=== PATIENT | female | born 1990 | race Caucasian/White ===

== ENCOUNTER 2021-06-19 07:53 | Outpatient (CLI) | payer OTHER, SELFPAY ==
[2021-06-21 16:50] LABS: Testosterone Free 4.3 pg/mL (0.0-4.2)
== END 2021-06-19 23:59 | disposition home or self-care (01) ==
PROVIDERS: Referring Provider Nurse Practitioner Women's Health; Visit Provider Nurse Practitioner Women's Health
DX: N97.0 Female infertility associated with anovulation (principal)
CPT/HCPCS: 36415; 82627; 84402; 82626

== ENCOUNTER 2021-07-08 11:02 | Outpatient (CLI) | payer OTHER, SELFPAY ==
[2021-07-08 11:39] LABS: Progesterone Level 0.54 ng/mL (See Comment)
== END 2021-07-08 23:59 | disposition home or self-care (01) ==
LOC: PAVLAB 11:03
PROVIDERS: Obstetrics & Gynecology; Referring Provider Nurse Practitioner Women's Health; Visit Provider Nurse Practitioner Women's Health
DX: N92.6 Irregular menstruation, unspecified (principal)
CPT/HCPCS: 36415; 84144

== ENCOUNTER → 2021-09-30 | Outpatient (CLI) | payer OTHER, SELFPAY ==
[2021-09-30 08:22] LABS: Progesterone Level 17.48 ng/mL (See Comment)
== END | disposition home or self-care (01) ==
PROVIDERS: Referring Provider Nurse Practitioner Women's Health; Visit Provider Nurse Practitioner Women's Health
DX: N92.6 Irregular menstruation, unspecified (principal)
CPT/HCPCS: 36415; 84144

== ENCOUNTER → 2021-10-28 | Outpatient (CLI) | payer OTHER, SELFPAY ==
[2021-10-28 09:39] LABS: Progesterone Level 7.87 ng/mL (See Comment)
== END | disposition home or self-care (01) ==
LOC: PAVLAB 09:00
PROVIDERS: Obstetrics & Gynecology; Visit Provider Obstetrics & Gynecology
DX: N92.6 Irregular menstruation, unspecified (principal)
CPT/HCPCS: 36415; 84144

== ENCOUNTER → 2022-09-12 | Outpatient (CLI) | payer OTHER, SELFPAY ==
[2022-09-12 09:14] LABS: Absolute Lymphocyte Count 3.01 X10^3/uL (0.83-4.51); Basophil# 0.02 X10^3/uL; Basophil% 0.2 % (0-1); Eosinophil# 0.55 X10^3/uL; Eosinophils% 4.9 % (0-5); Hematocrit 39.7 % (37-47); Hemoglobin 13.2 g/dL (12.0-15.0); Lymphocyte # 3.01 X10^3/ul (0.83-4.51); Lymphocyte % 26.8 % (19-41); Mean Corp Hgb Conc 33.2 g/dL (32-36); Mean Corpuscular Hgb 26.8 pg (27.0-32.0); Mean Corpuscular Volume 80.7 fL (81-99); Mean Platelet Vol. 8.7 fl (6.2-12.0); Monocyte# 0.58 X10^3/uL; Monocyte% 5.2 % (0-10); NRBC Flagged by Analyzer 0 % (0-5); Neutrophil # 7.02 X10^3/uL (2.7-7.7); Neutrophil % 62.5 % (47-70); Platelet Count 345 K/mm3 (150-450); RBC Distribution Width CV 12.3 % (11.6-14.6); RBC Distribution Width SD 35.5 fl (35.1-43.9); Red Blood Count 4.92 M/mm3 (4.2-5.4); White Blood Count 11.2 K/mm3 (4.4-11.0)
[2022-09-12 11:11] LABS: HIV - WCH Non-Reactive (Nonreactive); Hepatitis B Surface Antigen Non-Reactive (Nonreactive); Hepatitis C Antibody Non-Reactive (Nonreactive); Rubella IgG Reactive (Nonreactive); Syphilis Antibodies Non-reactive
[2022-09-16 00:07] LABS: Chlamydia By Nucleic Acid AMP Negative (Negative); Gonococcus By Nucleic Acid AMP Negative (Negative)
[2022-10-13 12:34] LABS: HPV Reflexed? NOT INDICATED
== END | disposition home or self-care (01) ==
PROVIDERS: PCP Nurse Practitioner Family; Referring Provider Obstetrics & Gynecology; Visit Provider Obstetrics & Gynecology
DX: O09.91 Supervision of high risk pregnancy, unspecified, first trimester (principal); Z3A.00 Weeks of gestation of pregnancy not specified
CPT/HCPCS: 36415; 85025; 86703; 86762; 86780; 86803; 86850; 86900; 86901; 87086; 87088; 87340; 87491; 87591; 88175; G0145

== ENCOUNTER → 2022-10-03 | Outpatient (CLI) | payer OTHER, SELFPAY ==
[2022-10-03 09:44] LABS: Glucose Challenge Gest 1H 50g 173 mg/dL (70-140)
== END | disposition home or self-care (01) ==
PROVIDERS: PCP Nurse Practitioner Family; Referring Provider Obstetrics & Gynecology; Visit Provider Obstetrics & Gynecology
DX: O99.210 Obesity complicating pregnancy, unspecified trimester (principal); Z3A.00 Weeks of gestation of pregnancy not specified
CPT/HCPCS: 36415; 82950

== ENCOUNTER → 2022-10-14 | Outpatient (CLI) | payer OTHER, SELFPAY ==
[2022-10-14 07:35] LABS: Glucose GTT-Gestation. Fasting 82 mg/dL (<105)
[2022-10-14 09:08] LABS: Glucose GTT-Gestational 1 Hr 150 mg/dL (<190)
[2022-10-14 09:38] LABS: Glucose GTT-Gestational 2 Hr 160 mg/dL (<165)
[2022-10-14 10:50] LABS: Glucose GTT-Gestational 3 Hr 128 L (<145)
== END | disposition home or self-care (01) ==
LOC: LAB 06:47
PROVIDERS: PCP Nurse Practitioner Family; Referring Provider Obstetrics & Gynecology; Visit Provider Obstetrics & Gynecology
DX: Z13.1 Encounter for screening for diabetes mellitus (principal)
CPT/HCPCS: 36415; 82951; 82952

== ENCOUNTER → 2022-12-22 | Outpatient (CLI) | payer OTHER, SELFPAY ==
[2022-12-22 07:21] LABS: Absolute Neutrophil Count 8.3 X10^3/uL (2.0-7.7); Basophil# 0.02 X10^3/uL; Basophil% 0.2 % (0-1); Eosinophil# 0.09 X10^3/uL; Eosinophils% 0.7 % (0-5); Hematocrit 37.5 % (37-47); Hemoglobin 12.1 g/dL (12.0-15.0); Lymphocyte % 26.5 % (19-41); Mean Corp Hgb Conc 32.3 g/dL (32-36); Mean Corpuscular Hgb 27.6 pg (27.0-32.0); Mean Corpuscular Volume 85.4 fL (81-99); Mean Platelet Vol. 9.1 fl (6.2-12.0); Monocyte# 0.68 X10^3/uL; Monocyte% 5.5 % (0-10); NRBC Flagged by Analyzer 0 % (0-5); Neutrophil # 8.26 X10^3/uL (2.7-7.7); Neutrophil % 66.4 % (47-70); Platelet Count 293 K/mm3 (150-450); RBC Distribution Width CV 13.2 % (11.6-14.6); RBC Distribution Width SD 40.8 fl (35.1-43.9); Red Blood Count 4.39 M/mm3 (4.2-5.4); White Blood Count 12.4 K/mm3 (4.4-11.0)
[2022-12-22 07:49] LABS: Glucose GTT-Gestation. Fasting 95 mg/dL (<105)
[2022-12-22 09:02] LABS: Glucose GTT-Gestational 1 Hr 167 mg/dL (<190)
[2022-12-22 09:33] LABS: Glucose GTT-Gestational 2 Hr 125 mg/dL (<165)
[2022-12-22 10:10] LABS: HIV - WCH Non-Reactive (Nonreactive); Syphilis Antibodies Non-reactive
[2022-12-22 10:34] LABS: Glucose GTT-Gestational 3 Hr 96 L (<145)
== END | disposition home or self-care (01) ==
LOC: LAB 06:47
PROVIDERS: PCP Nurse Practitioner Family; Referring Provider Obstetrics & Gynecology; Visit Provider Obstetrics & Gynecology
DX: O09.91 Supervision of high risk pregnancy, unspecified, first trimester (principal); Z3A.00 Weeks of gestation of pregnancy not specified
CPT/HCPCS: 36415; 82951; 82952; 85025; 86703; 86780

== ENCOUNTER → 2023-01-13 | Outpatient (CLI) | payer OTHER, SELFPAY ==
--- NOTE | 2023-01-13 15:50 | US_ITS ---
EXAM: US SECOND OR THIRD TRIMESTER , TRANSABDOMINAL CLINICAL INDICATION: growth -- every 4 weeks TECHNIQUE: Transabdominal obstetrical ultrasound of the maternal pelvis and a second or third trimester with image documentation. COMPARISON: No relevant prior studies available. FINDINGS: FETUS: There is an intrauterine gestation. HEART RATE: heart rate is 157 bpm. PRESENTATION: The fetus is in breech position. PLACENTA: The placenta is left lateral. No placenta previa. No abruption. AMNIOTIC FLUID: KINJAL is 16.9 cm. ANATOMY: Intracranial/face anatomy not seen. Spinal anatomy not seen. Abdominal anatomy not seen. Extremities not seen. Four-chamber heart not seen. Umbilical cord not seen. BIOMETRICS GESTATIONAL AGE: Gestational age 27 weeks 4 days. SONY: SONY 04/10/2023. EFW: Estimated weight 1294 g, 84th percentile. BPD: Biparietal diameter 7.2 cm age 29 weeks 0 days, 84th percentile. HC: Head circumference 26.4 cm age 20 weeks 5 days, 57th percentile. AC: Abdominal circumference 25.1 cm age 29 weeks 2 days, 88th percentile. FL: Femur length 5.2 cm age 27 weeks 6 days, 43rd percentile. MATERNAL: UTERUS: Unremarkable. No myometrial mass. CERVIX: Cervix measures 5 cm. ADNEXA: Unremarkable. No adnexal masses. FREE FLUID: None. US/OB Limited With Biometrics IMPRESSION: Intrauterine gestation with an average ultrasound age of 28 weeks 4 days and ultrasound estimated due date of 04/03/2023. heart rate is 157 beats per minutes. Electronically Signed: Josué Casiano MD at 20:49 EDT ,
== END | disposition home or self-care (01) ==
PROVIDERS: PCP Nurse Practitioner Family; Visit Provider Obstetrics & Gynecology
DX: O99.210 Obesity complicating pregnancy, unspecified trimester (principal); Z3A.00 Weeks of gestation of pregnancy not specified
CPT/HCPCS: 76816

== ENCOUNTER → 2023-02-10 | Outpatient (CLI) | payer OTHER, SELFPAY ==
--- NOTE | 2023-02-10 12:19 | US_ITS ---
STUDY: SECOND AND THIRD TRIMESTER OBSTETRICAL ULTRASOUND REASON FOR EXAM: Female, 32 years old Infertility IVF TECHNIQUE: Transabdominal PRIOR ULTRASOUND: 01/13/2023. FINDINGS: There is a single intrauterine fetus. The fetus is in a cephalic presentation. There is demonstrated cardiac activity with a heart rate of 141 bpm. There is a normal amniotic fluid volume. The largest amniotic fluid pocket measures 6.6 cm. The amniotic fluid index (KINJAL) is 15.9 cm. The placenta is left lateral and not low-lying. There are Grade 1 placental changes. The cervix measures 3.7 cm in length. The adnexal regions are not visualized. BPD: 8.2 cm = 32 weeks, 5 day(s) HC: 29.3 cm = 32 weeks, 2 day(s) AC: 24 cm = 33 weeks, 3 day(s) FL: 5.8 cm = 30 weeks, 4 day(s) EGA by ultrasound: 32 weeks 1 day(s) SONY by ultrasound: 04/06/2023 Estimated weight: 1998 grams Weight percentile: 70% US/OB Limited With Biometrics IMPRESSION: Living intrauterine with estimated gestational age of 32 weeks and 1 day. No obvious anomalies. Electronically Signed: Odilon Chen MD at 16:44 EST ,
== END | disposition home or self-care (01) ==
LOC: US 12:18
PROVIDERS: PCP Nurse Practitioner Family; Referring Provider Obstetrics & Gynecology; Visit Provider Obstetrics & Gynecology
DX: O09.91 Supervision of high risk pregnancy, unspecified, first trimester (principal); Z3A.00 Weeks of gestation of pregnancy not specified
CPT/HCPCS: 76816

== ENCOUNTER → 2023-03-11 | Outpatient (CLI) | payer OTHER, SELFPAY ==
--- NOTE | 2023-03-11 16:52 | US_ITS ---
STUDY: SECOND AND THIRD TRIMESTER OBSTETRICAL ULTRASOUND - LIMITED REASON FOR EXAM: Female, 32 years old Growth every 4 weeks, IVF LMP: 07/04/2022 PRIOR ULTRASOUND: 02/10/2023 TECHNIQUE: Transabdominal TECHNICAL QUALITY: Adequate. FINDINGS: There is a single intrauterine fetus. The fetus is in a cephalic presentation. There is demonstrated cardiac activity with a heart rate of 153 bpm. There is a normal amniotic fluid volume. The largest amniotic fluid pocket measures 6.9 cm. The amniotic fluid index (KINJAL) is 15.1 cm. The placenta is left lateral in location and is not low lying. There are Grade 1 placental changes. The cervix measures 3.6 cm in length. BIOMETRY: BPD: 8.9 cm: 36 weeks, 0 days HC: 32.3 cm: 36 weeks, 4 days AC: 33.0 cm: 37 weeks, 0 days FL: 6.6 cm: 34 weeks, 0 days Age by LMP: 35 weeks, 5 days. SONY by LMP: 04/10/2023. age by prior US: weeks, days. SONY by prior US: . age by current US: 36 weeks, 3 days. SONY by current US: 04/05/2023. Estimated weight: 2863 grams, +/- 429 grams, 62 percentile. Gender: US/OB Limited With Biometrics IMPRESSION: Living intrauterine of 36 weeks 3 days as described above. Electronically Signed: Narayan Leary MD at 22:53 EST ,
== END | disposition home or self-care (01) ==
PROVIDERS: PCP Nurse Practitioner Family; Referring Provider Obstetrics & Gynecology; Visit Provider Obstetrics & Gynecology
DX: O99.810 Abnormal glucose complicating pregnancy (principal); O09.91 Supervision of high risk pregnancy, unspecified, first trimester; Z3A.00 Weeks of gestation of pregnancy not specified
CPT/HCPCS: 76816

== ENCOUNTER → 2023-03-18 | Outpatient (CLI) | payer OTHER, SELFPAY | END | disposition home or self-care (01) | LOC: LABSPEC 13:25 | PROVIDERS: PCP Nurse Practitioner Family; Visit Provider Registered Nurse | DX: Z34.90 Encounter for supervision of normal pregnancy, unspecified, unspecified trimester (principal) | CPT/HCPCS: 87081 ==

== ENCOUNTER 2023-04-05 18:56 | Inpatient (IN) | payer OTHER, SELFPAY ==
--- OUTSIDE RECORDS SUMMARY | 2023-04-05 19:00 | XMS RPT_ITS | CCD ---
Author Name Unknown Address [address] [place] [address] Organization [facility] Care Team Providers Care Marketing Information Coordinator Name Role Phone MARIA FERNANDA SANTIZO Attending UnavailAugustina Love Unavailable Unavailable Unavailable NEVAEH BAKER Attending Unavailable Unavailable Primary Care Provider Alex STAPLETON PRIMARY CAREMD Primary Care Unavailable HARRY NASCIMENTO Attending Unavailable HARRY NASCIMENTO Referring Unavailable NO PRIMARY CARE, Primary Care Unavailable NURIA MCGINNIS Referring UnavailKAYLEEN Womack Attending Unavailable Medications Current Medications Medication Drug Class(es) Dates Sig (Normalized) Sig (Original) polymyxin b 75952 unt/ml / trimethoprim 1 mg/ml ophthalmic solution (1 source) Dihydrofolate Reductase Inhibitor Antibacterial, Polymyxin-class Antibacterial Start: 08-24-2022 End: 08-31-2022 take 1 drop(s) into the eye(s) three times daily trimethoprim-sofia ymyxin (POLYTRIM) 10,000 unit- 1 mg/mL ophthalmic solution Use 1 Drop in both eyes three times daily for 7 days. 10 mL 0 08/24/2022 08/31/2022 Active Completed/Discontinued Medications Medication Drug Class(es) Dates Sig (Normalized) Sig (Original) estradiol 2 mg oral tablet (1 source) Estrogen Start: 08-03-2022 estradiol (ESTRACE) 2 mg tablet 24 hr metFORMIN hydrochloride 500 mg extended release oral tablet (1 source) Biguanide Start: 06-17-2022 metFORMIN ER (GLUCOPHAGE XR) 500 mg 24 hr tablet No Reported Medications (2 sources) No Reported Medications Quantity: 0 Refills: 0 Ordered: 22-Oct-2020 DO Active progesterone 50 mg/ml injectable solution (1 source) Progesterone Start: 08-03-2022 progesterone 50 mg/mL injection Problems Problem Classification Problem Date Documented Da te Episodic/Chronic Inflammation; infection of eye (except that caused by tuberculosis or sexually transmitteddisease) (1 source) Acute conjunctivitis of bilateral eyes; Translations: [Unspecified acute conjunctivitis, bilateral] Episodic Other nutritional; endocrine; and metabolic disorders (2 sources) Body mass index 30+ - obesity; Translations: [Body Mass Index 38.0-38.9, adult] Chronic Thyroid disorders (2 sources) Goiter; Translations: [Goiter, unspecified] Chronic Unclassified (1 source) No additional problems on file Results Test Name Value Interpretation Reference Range Facil ity Vital Signs Date Time Vital Sign Value Performing Clinician Facility 08-24-2022 08:20-0400 Body temperature 98.1 [degF] Kelley Lai [employer] Work Phone: [facility] 08-24-2022 08:20-0400 Body weight 96.16 kg Kelley Savagek [employer]PROJECT BU[employer]DER Work Phone: [facility] 08-24-2022 08:20-0400 Diastolic blood pressure 80 mm[Hg] Kelley Lai [employer].[facility] Work Phone: [facility] 08-24-2022 08:20-0400 Heart rate 120 /min Kelley Lai [employer].[facility] Work Phone: [facility] 08-24-2022 08:20-0400 Respiratory rate 16 /min Kelley Lai [employer].[facility] Work Phone: [facility] 08-24-2022 08:20-0400 SaO2% (BldA) [Mass fraction] 98 % Kelley Savagek [employer].PROJECT BUILDER Work Phone: [facility] 08-24-2022 08:20-0400 Systolic blood pressure 130 mm[Hg] Kelley Lai [employer].[facility] Work Phone: [facility] 10-22-2020 15:24-0400 Body height 160.02 cm Augustina Cochran Work Phone: [facility] Work Phone: 10-22-2020 15:24-0400 Body mass index (BMI) [Ratio] 38.97 kg/m2 Augustina Cochran Work Phone: [facility] Work Phone: 10-22-2020 15:24-0400 Body surface area Derived from formula 2.01 m2 Augustina Cochran Work Phone: [facility] Work Phone: 10-22-2020 15:24-0400 Body temperature 97.7 [degF] Augustina Cochran Work Phone: [facility] Work Phone: 10-22-2020 15:24-0400 Body weight 99.79 kg Augustina Cochran Work Phone: [facility] Work Phone: 10-22-2020 15:24-0400 Diastolic blood pressure 70 mm[Hg] Augustina Cochran Work Phone: [facility] Work Phone: 10-22-2020 15:24-0400 Heart rate 111 /min Augustina Cochran Work Phone: [facility] Work Phone: 10-22-2020 15:24-0400 SaO2% (BldA) [Mass fraction] 98 % Augustina Cochran Work Phone: [facility] Work Phone: 10-22-2020 15:24-0400 Systolic blood pressure 124 mm[Hg] Augustina Cochran Work Phone: [facility] Work Phone: Encounters Encounter Date Encounter Type Care Provider Facility Start: 12-16-2022 End: 12-16-2022 ambulatory NO PRIMARY CARE [facility] Start: 11-13-2022 End: 11-13-2022 ambulatory NO PRIMARY CARE [facility] Start: 08-24-2022 End: 08-24-2022 ambulatory Facility:[facility] Start: 08-24-2022 End: 08-24-2022 Patient encounter procedure Kelley Hoyt APRN.SHANA Work Phone: [facility] Care Procedures Date Procedure Procedure Detail Performing Clinician Tonsillectomy and adenoidectomy Augustina Cochran Work Phone: Plan of Treatment Date Care Activity Detail Author Start: 11-21-2022 Influenza vaccination INFLUENZA (Sea son Ended) [facility] Start: 03-23-2022 DEPRESSION ASSESSMENT DEPRESSION ASS ESSMENT [facility] Start: 09-30-2021 Urine microalbumin profile DTA P,TDAP,TD (8 - Td or Tdap) [facility] Start: 2013 PAP TESTING PAP TESTING [facility] Start: 2010 HEPATITIS C SCREENING HEPATITIS C SC LONNY [facility] Start: 2010 HIV SCREENING HIV SCREENING [facility] Start: 06-10-1993 COVID-19 VACCINE (#1) COVID-19 VACCI NE (#1) [facility] Immunizations Immunization Date Immunization Notes Care Provider Fa berna 10-01-2011 Meningococcal, MCV4, unspecified conjugate formulation(groups A, C, Y and W-135) Kelley Hoyt APRN.PROJECT BUILDER Work Phone: [facility] 10-01-2011 tetanus toxoid, redu melissa diphtheria toxoid, and acellular pertussis vaccine, adsorbed Kelley Hoyt APRN.PROJECT BUILDER Work Phone: [facility] 06-01-2008 human papilloma viru s vaccine, quadrivalent Kelley Hoyt APRN.PROJECT BUILDER Work Phone: [facility] Work Phone: 06-01-2008 varicella virus vaccine Angel Hoyt APRN.PROJECT BUILDER Work Phone: [facility] Work Phone: 02-01-2008 human papilloma viru s vaccine, quadrivalent Kelley Hoyt APRN.PROJECT BUILDER Work Phone: [facility] Work Phone: 11-30-2007 hepatitis A vaccine, unspecified formulation Kelley Lai [employer].PROJECT BUILDER Work Phone: [facility] Work Phone: 11-30-2007 human papilloma viru s vaccine, quadrivalent Kelleyjaney Hoyt [employer]PER[employer].PROJECT BUILDER Work Phone: [facility] Work Phone: 11-27-2006 hepatitis A vaccine, unspecified formulation Kelley Hoyt [employer]PER[employer].PROJECT BUILDER Work Phone: [facility] Work Phone: 01-26-2006 influenza virus vaccine, unspecified formulation Kelley Hoyt [employer]PER[employer].[facility] Work Phone: [facility] Work Phone: 11-08-2004 diphtheria and tetan us toxoids, adsorbed for pediatric use Kelleyjaney Hoyt [employer]PER[employer].[facility] Work Phone: [facility] Work Phone: 11-08-2004 Meningococcal, MCV4, unspecified conjugate formulation(groups A, C, Y and W-135) Kelley Hoyt APRN.PROJECT BUILDER Work Phone: [facility] Work Phone: 10-30-2000 varicella virus vaccine Angel Hoyt APRN.[facility] Work Phone: [facility] Work Phone: 01-05-1998 diphtheria, tetanus toxoids and acellular pertussis vaccine Kelley Hyot APRN.PROJECT BUILDER Work Phone: [facility] Work Phone: 01-05-1998 measles, mumps and rubella virus vaccine Kelley Hoyt [employer]PER[employer].PROJECT BUILDER Work Phone: [facility] Work Phone: 01-05-1998 trivalent poliovirus vaccine, live, oral Kelley Hoyt APRN.PROJECT BUILDER Work Phone: [facility] Work Phone: 03-26-1994 diphtheria, tetanus toxoids and acellular pertussis vaccine Kelley Hoyt APRN.PROJECT BUILDER Work Phone: [facility] Work Phone: 03-26-1994 haemophilus influenz ae type b vaccine, HbOC conjugate Kelley Lai [employer] SUPER[employer].[facility] Work Phone: [facility] Work Phone: 12-26-1993 measles, mumps and rubella virus vaccine Kelley Lai [employer] SUPER[employer].[facility] Work Phone: [facility] Work Phone: 07-11-1993 diphtheria, tetanus toxoids and pertussis vaccine Kelley Lai [employer] SUPER[employer].[facility] Work Phone: [facility] Work Phone: 07-11-1993 haemophilus influenz ae type b vaccine, HbOC conjugate Kelley Lai [employer] SUPER[employer].[facility] Work Phone: [facility] Work Phone: 07-11-1993 hepatitis B vaccine, pediatric or pediatric/adolescent dosage Kelley Lai [employer] SUPER[employer].[facility] Work Phone: [facility] Work Phone: 07-11-1993 trivalent poliovirus vaccine, live, oral Kelley Lai [employer] SUPER[employer].[facility] Work Phone: [facility] Work Phone: 04-25-1993 diphtheria, tetanus toxoids and pertussis vaccine Kelley Lai [employer] SUPER[employer].[facility] Work Phone: [facility] Work Phone: 04-25-1993 haemophilus influenz ae type b vaccine, HbOC conjugate Kelley Lai [employer] SUPER[employer].PROJECT BUILDER Work Phone: [facility] Work Phone: 04-25-1993 trivalent poliovirus vaccine, live, oral Kelley Lai [employer] SUPER[employer].[facility] Work Phone: [facility] Work Phone: 02-07-1993 diphtheria, tetanus toxoids and pertussis vaccine Kelley Lai [employer] SUPER[employer].[facility] Work Phone: [facility] Work Phone: 02-07-1993 haemophilus influenz ae type b vaccine, HbOC conjugate Kelley Hoyt APRN.PROJECT BUILDER Work Phone: [facility] Work Phone: 02-07-1993 hepatitis B vaccine, pediatric or pediatric/adolescent dosage Kelley Hoyt [employer] SUPER[employer].PROJECT BUILDER Work Phone: [facility] Work Phone: 02-07-1993 trivalent poliovirus vaccine, live, oral Kelley Hoyt [employer] SUPER[employer].PROJECT BUILDER Work Phone: [facility] Work Phone: 1992 hepatitis B vaccine, pediatric or pediatric/adolescent dosage Kelley Hoyt [employer] SUPER[employer].PROJECT BUILDER Work Phone: [facility] Work Phone: Payers Date Payer Category Payer Unknown 2016 Unknown [id number] 1992 Unknown [id number] 1992 Unknown [id number] 1992 Unknown [id number] 1992 Unknown [id number] Social History Date Type Detail Facility Consumes alcohol occasionally Consumes alcohol occasionally [facility] Work Phone: Start: 08-24-2022 Tobacco smoking status NHIS Never smoked tobacco [facility] Start: 08-24-2022 Tobacco use and exposure Smokeless tobacco non-user [facility] Start: 08-24-2022 Alcohol intake Current non-drinker of alcohol (finding) [facility] Start: 07-18-2022 [facility] Start: 1990 Sex Assigned At Not on file [facility] Progress note 08-24-2022 Note Date & Type Note Facility 08-24-2022 Note HNO ID: [id number] Author: Kelley Hoyt APRN.CNP Service: ? Author Type: Nurse Practitioner Type: Progress Notes Filed: 08/24/2022 8:46 AM Note Text: Subjective Eye Problem Associated symptoms include congestion and a sore throat. Pertinent negatives include no chest pain, chills, coughing, fever, headaches or myalgias. HPI Nieves Lin is a 31 year old female who presents today for CC of bilateral red eyes and yellow drainage. This started in past days. She also started 2 days ago, nasal congestion and drainage. She has not used any treatment or medications. She is 7 weeks . BP 130/80 Pulse 120 Temp 36.7 ?C (98.1 ?F) Resp 16 Wt 96.2 kg (212 lb) LMP 06/29/2018 SpO2 98% Social History Tobacco Use Smoking status: Never Smokeless tobacco: Never Substance Use Topics Alcohol use: No Drug use: No PAST MEDICAL HISTORY Diagnosis Date PMH - PAST MEDICAL HISTORY OF normal color vision on I have confirmed and edited as necessary, the [facility] Review of Systems Constitutional: Negative for chills and fever. HENT: Positive for congestion and sore throat. Negative for ear pain and sinus pain. Eyes: Positive for discharge and redness. Respiratory: Negative for cough, sputum production, shortness of breath and wheezing. Cardiovascular: Negative for chest pain. Musculoskeletal: Negative for myalgias. Neurological: Negative for headaches. Objective Physical Exam Vitals and nursing note reviewed. HENT: Head: Normocephalic and atraumatic. Right Ear: Tympanic membrane, ear canal and external ear normal. Left Ear: Tympanic membrane, ear canal and external ear normal. Nose: No mucosal edema, congestion or rhinorrhea. Right Sinus: No maxillary sinus tenderness or frontal sinus tenderness. Left Sinus: No maxillary sinus tenderness or frontal sinus tenderness. Mouth/Throat: Pharynx: Uvula midline. No oropharyngeal exudate or posterior oropharyngeal erythema. Eyes: General: Lids are normal. Lids are everted, no foreign bodies appreciated. Right eye: No foreign body or discharge. Left eye: No foreign body or discharge. Conjunctiva/sclera: Right eye: Right conjunctiva is injected. Left eye: Left conjunctiva is injected. Comments: Clear drainage Cardiovascular: Rate and Rhythm: Normal rate and regular rhythm. Heart sounds: Normal heart sounds. Pulmonary: Effort: Pulmonary effort is normal. Breath sounds: Normal breath sounds. Lymphadenopathy: Head: Right side of head: No submental, submandibular or tonsillar adenopathy. Left side of head: No submental, submandibular or tonsillar adenopathy. Cervical: No cervical adenopathy. Skin: General: Skin is warm and dry. Neurological: Mental Status: She is alert. Psychiatric: Mood and Affect: Affect normal. ASSESSMENT/PLAN: 1. Acute conjunctivitis of both eyes, unspecified acute conjunctivitis type - ICD9: 372.00, ICD10: H10.33 Suspect viral, allergic - soothing eye drops - start polytrim with worsening symptoms Follow up with pcp as needed Mucinex as needed for uri symptoms Diagnosis and treatment plan were discussed and questions were answered to the patient's satisfaction. Pt acknowledged understanding of concepts and follow up plan. Specific signs and symptoms that would indicate the need for higher level of care were discussed in detail warranting prompt ER evaluation. Kelley Hoyt APRN.CNP [facility] Instructions 08-24-2022 Patient Instructions Note Date & Type Note Facility 08-24-2022 Instructions Kelley Hoyt APRN.CNP - 08/24/2022 8:35 AM EDT Wash eye/eyes with diluted baby shampoo morning to help remove crusting Cool compresses for eye inflammation/irritation frequently throughout the day. Go to ER for any sudden loss of vision or severe vision changes. Follow up with PCP if no improvement in 1 week. documented in this encounter [facility] History of Present illness Narrative 08-24-2022 Kelley Hoyt APRN.CNP - 08/24/2022 8:34 AM EDT Note Date & Type Note Facility 08-24-2022 History of Presen t illness Narrative Subjective Eye Problem Associated symptoms include congestion and a sore throat. Pertinent negatives include no chest pain, chills, coughing, fever, headaches or myalgias. HPI Nieves Lin is a 31 year old female who presents today for CC of bilateral red eyes and yellow drainage. This started in past days. She also started 2 days ago, nasal congestion and drainage. She has not used any treatment or medications. She is 7 weeks . BP 130/80 Pulse 120 Temp 36.7 C (98.1 F) Resp 16 Wt 96.2 kg (212 lb) LMP 06/29/2018 SpO2 98% Social History Tobacco Use Smoking status: Never Smokeless tobacco: Never Substance Use Topics Alcohol use: No Drug use: No PAST MEDICAL HISTORY Diagnosis Date H - PAST MEDICAL HISTORY OF normal color vision on I have confirmed and edited as necessary, the [facility] Review of Systems Constitutional: Negative for chills and fever. HENT: Positive for congestion and sore throat. Negative for ear pain and sinus pain. Eyes: Positive for discharge and redness. Respiratory: Negative for cough, sputum production, shortness of breath and wheezing. Cardiovascular: Negative for chest pain. Musculoskeletal: Negative for myalgias. Neurological: Negative for headaches. Objective Physical Exam Vitals and nursing note reviewed. HENT: Head: Normocephalic and atraumatic. Right Ear: Tympanic membrane, ear canal and external ear normal. Left Ear: Tympanic membrane, ear canal and external ear normal. Nose: No mucosal edema, congestion or rhinorrhea. Right Sinus: No maxillary sinus tenderness or frontal sinus tenderness. Left Sinus: No maxillary sinus tenderness or frontal sinus tenderness. Mouth/Throat: Pharynx: Uvula midline. No oropharyngeal exudate or posterior oropharyngeal erythema. Eyes: General: Lids are normal. Lids are everted, no foreign bodies appreciated. Right eye: No foreign body or discharge. Left eye: No foreign body or discharge. Conjunctiva/sclera: Right eye: Right conjunctiva is injected. Left eye: Left conjunctiva is injected. Comments: Clear drainage Cardiovascular: Rate and Rhythm: Normal rate and regular rhythm. Heart sounds: Normal heart sounds. Pulmonary: Effort: Pulmonary effort is normal. Breath sounds: Normal breath sounds. Lymphadenopathy: Head: Right side of head: No submental, submandibular or tonsillar adenopathy. Left side of head: No submental, submandibular or tonsillar adenopathy. Cervical: No cervical adenopathy. Skin: General: Skin is warm and dry. Neurological: Mental Status: She is alert. Psychiatric: Mood and Affect: Affect normal. ASSESSMENT/PLAN: 1. Acute conjunctivitis of both eyes, unspecified acute conjunctivitis type - ICD9: 372.00, ICD10: H10.33 Suspect viral, allergic - soothing eye drops - start polytrim with worsening symptoms Follow up with pcp as needed Mucinex as needed for uri symptoms Diagnosis and treatment plan were discussed and questions were answered to the patient's satisfaction. Pt acknowledged understanding of concepts and follow up plan. Specific signs and symptoms that would indicate the need for higher level of care were discussed in detail warranting prompt ER evaluation. Kelley Hoyt APRN.CNP documented in this encounter [facility] Evaluation note Note Date & Type Note Facility documented in this encounter [facility] Summary Purpose Family History No Family History Records FoundUnknown Family Member Name Dates Details No pertinent family history: Mother(V49.89, Z78.9) Status:Active Family history of malignant neoplasm of thyroid: Father(V16.8, Z80.8) Status:Active Unknown Family Member Name Dates Details No pertinent family history: Mother(V49.89, Z78.9) Status:Active Family history of malignant neoplasm of thyroid: Father(V16.8, Z80.8) Status:Active Advance Directives No Advanced Directives Records FoundNo Advanced Directives Records FoundNo Advanced Directives Records FoundNo Advanced Directives Records FoundNo Advanced Directives Records FoundNo Advanced Directives Records FoundNo Advanced Directives Records Found Additional Source Comments INFORMATION SOURCE (unrecogn ized section and content) DATE CREATED AUTHOR AUTHOR'S ORGANIZ ATION 11/25/2019 [facility] DATE CREATED AUTHOR AUTHOR'S ORGANIZ ATION 10/23/2020 [employer] DATE CREATED AUTHOR AUTHOR'S ORGANIZ ATION 10/28/2020 [facility] DATE CREATED AUTHOR AUTHOR'S ORGANIZ ATION 11/15/2021 [facility] DATE CREATED AUTHOR AUTHOR'S ORGANIZ ATION 08/31/2022 [facility] DATE CREATED AUTHOR AUTHOR'S ORGANIZ ATION 12/24/2022 [facility] Source Comments (unrecognize d section and content) In the event this informatio n is protected by the Federal Confidentiality of Alcohol and Drug Abuse Patient Records regulations: The Federal rules restrict any use of the information to criminally investigate or prosecute any alcohol or drug abuse patient.[facility] Reason for Visit (unrecogniz ed section and content) FOR RECORDS PERTAINING TO PATIENTS WHO ARE OR HAVE BEEN ENROLLED IN A CHEMICAL DEPENDENCY/SUBSTANCEABUSE PROGRAM, SOME INFORMATION MAY BE OMITTED. This clinical summary was aggregated from multiple sources. Caution should be exercised in using it in the provision of clinical care. This summary normalizes information from multiple sources, and as a consequence, information in this document may materially change the coding, format and clinical context of patient data. In addition, data may be omitted in some cases. CLINICAL DECISIONS SHOULD BE BASED ON THE PRIMARY CLINICAL RECORDS. [facility]. provides no warranty or guarantee of the accuracy or completeness of information in this document.
[2023-04-05 19:20] VITALS: BP 133/93; PULSE 112; TEMP 37.1; O2SAT 97
[2023-04-05 19:21] VITALS: PULSE 109; O2SAT 98
[2023-04-05 19:26] VITALS: BMI 40.5
[2023-04-05 19:39] LABS: Absolute Lymphocyte Count 3.01 X10^3/uL (0.83-4.51); Basophil# 0.01 X10^3/uL; Basophil% 0.1 % (0-1); Eosinophil# 0.07 X10^3/uL; Eosinophils% 0.6 % (0-5); Hematocrit 37.6 % (37-47); Hemoglobin 12.6 g/dL (12.0-15.0); Lymphocyte # 3.01 X10^3/ul (0.83-4.51); Lymphocyte % 25.3 % (19-41); Mean Corp Hgb Conc 33.5 g/dL (32-36); Mean Corpuscular Hgb 27.6 pg (27.0-32.0); Mean Corpuscular Volume 82.3 fL (81-99); Mean Platelet Vol. 9.9 fl (6.2-12.0); Monocyte# 0.74 X10^3/uL; Monocyte% 6.2 % (0-10); NRBC Flagged by Analyzer 0 % (0-5); Neutrophil # 8.02 X10^3/uL (2.7-7.7); Neutrophil % 67.4 % (47-70); Platelet Count 256 K/mm3 (150-450); RBC Distribution Width CV 13.7 % (11.6-14.6); RBC Distribution Width SD 40.3 fl (35.1-43.9); Red Blood Count 4.57 M/mm3 (4.2-5.4); White Blood Count 11.9 K/mm3 (4.4-11.0)
[2023-04-05 19:40] VITALS: BP 139/89; PULSE 94
[2023-04-05] MEDS: miSOPROStol 25 MCG TABLET VAGINAL (20:19)
[2023-04-05 20:26] LABS: Syphilis Antibodies Non-reactive
[2023-04-05 20:33] LABS: AST(SGOT) 11 U/L (15-37); Alanine Aminotransfer ALT/SGPT 15 U/L (13-56); Creatinine, Serum 0.56 mg/dL (0.55-1.02); EST Glomerular Filtration Rate 133 mL/min (>60); Est Glom Filt Rate - Afr Amer 162 mL/min (>60); Uric Acid 3.9 mg/dL (2.6-6.0)
[2023-04-05] MEDS: CHLORHEXIDINE GLUC 2% CLOTH 1 EACH TOWELETTE TOPICAL (21:33)
[2023-04-05 21:52] LABS: Protein, Urine (Random) 36.5 mg/dL (<11.9); Protein:Creat Ratio 160 mg/g CRE (0-200)
[2023-04-06] VITALS (10 sets, daily range): BP systolic 114–138; BP diastolic 62–83; PULSE 79–114; TEMP 36.3–37.3; O2SAT 96–98
[2023-04-06] MEDS: miSOPROStol 25 MCG TABLET VAGINAL ×2 (00:21→04:52)
[2023-04-06] MEDS: Lactated Ringers 1,000 ML 50 ML IV (08:38)
[2023-04-06] MEDS: miSOPROStol 50 MCG TABLET BUCCAL ×2 (10:19→16:52)
[2023-04-06] MEDS: CHLORHEXIDINE GLUC 2% CLOTH 1 EACH TOWELETTE TOPICAL (11:19)
--- NOTE | 2023-04-06 12:51 | HP.PCM.OB_ITS ---
HPI - General General Date of Admission: 04/05/23 HPI Narrative JUAN LOUISE, is a 32 F who presents for IOL at 39 weeks due in IVF . complicated by obesity, monthly growth scans obtained. EFW: Maternal Data Information SONY Calculator Estimated Delivery Date Method Current WG Current Estimate 04/10/23 Conception 39w 3d Other Estimates 04/10/23 LMP (Certain) 39w 3d PFSH PFSH Medical History Genetic testing Home Medications docosahexaenoic acid 200 mg capsule ( DHA) 200 mg PO 09/12/22 [History Last Taken 04/05/23 07:24 200 mg] metformin 1,000 mg tablet 1,000 mg PO DAILY insulin dependence pre- 09/12/22 [History Last Taken 04/05/23 07:25 1,000 mg] Allergy/AdvReac Type Severity Reaction Status Date / Time No Known Allergies Allergy Verified 04/05/23 19:24 Family History Father Thyroid cancer Grandmother Rectal cancer Grandfather Heart disease Surgical History History of tonsillectomy S/P foot surgery, right Social History household members: spouse current occupational status: employed current occupation: [employer] Smoking Status: Never smoker alcohol intake: current alcohol intake frequency: a few times a month substance use type: does not use caffeine: Yes what type of physical activity do you participate in: walking frequency: 3-4 times per week seatbelt use: always do you feel safe at home: Yes additional social history: - Hardik History 1 Elective abortions Hx Para 0 Spontaneous abortions Hx # Term Pregnancies Ectopic pregnancies Hx # Pregnancies Multiple births # of living children Visit Details Expected Delivery Route/Plan Labor Preferences- CB/BF classes: declines labor support person: Hardik labor intervention preferences: [] pain management options preferred: limited but open to epidural if needed cut cord/dad catch: cord : yes PP control planned: discussed discussed possible routes of delivery and associated risks: [] special requests: [] Plans Covid status: discussed Flu vaccine: given Tdap vaccine: [] Rhogam: na LARC form signed: yes Problem list reviewed and updated with the most current plan of care details and appropriate orders placed. Relevant counseling for the gestational age provided. Continue routine care and follow up unless otherwise noted in visit notes/problem list details OB Flowsheet Initial Weight: Not Recorded Date -?-?-?-?-?-?-?-?-?-?-?-?- EGA Weight BP Urine Prot -?-?-?-?-?-?-?-?-?-?-?-?- Glucose FHR FuHt Pres Dilation -?-?-?-?-?-?-?-?-?-?-?-?- Effaced St Visit Note 09/12/22 -?-?-?-?-?-?-?-?-?-?-?-?- 10w 0d 210 lb 135/71 -?-?-?-?-?-?-?-?-?-?-?-?- 190 -?-?-?-?-?-?-?-?-?-?-?-?- JV- CRL measurin g 10 weeks 5 days. embryo transfer on 07/23/22 at 5 days gestation, was given sony of 04/10 by [facility]. had carrier screen, does not want NIPT. 10/06/22 -?-?-?-?-?-?-?-?-?-?-?-?- 13w 3d 214 lb 136/82 Negative -?-?-?-?-?-?-?-?-?-?-?-?- Negative 160 -?-?-?-?-?-?-?-?-?-?-?-?- LC- no vb/crampi ng. to obtain 3 hour GCT. on metformin for insulin resistance but not DM2. 11/06/22 -?-?-?-?-?-?-?-?-?-?-?-?- 17w 6d 215 lb 2 oz 136/84 Nega tive -?-?-?-?-?-?-?-?-?-?-?-?- Negative 148 -?-?-?-?-?-?-?-?-?-?-?-?- KW-no vb/ crampi ng. declines AFP. Anatomy US next week. no concerns today 12/02/22 -?-?-?-?-?-?-?-?-?-?-?-?- 21w 4d 220 lb 2 oz 121/77 Nega tive -?-?-?-?-?-?-?-?-?-?-?-?- Negative 145 -?-?-?-?-?-?-?-?-?-?-?-?- SM- no vb lof go od fm n oreular ctx 12/16/22 -?-?-?-?-?-?-?-?-?-?-?-?- 23w 4d 220 lb 2 oz 92/60 -?-?-?-?-?-?-?-?-?-?-?-?- 145 -?-?-?-?-?-?-?-?-?-?-?-?- SM- no vb lof go od fm n oregular ctx 01/12/23 -?-?-?-?-?-?-?-?-?-?-?-?- 27w 3d 224 lb 2 oz 120/84 Nega tive -?-?-?-?-?-?-?-?-?-?-?-?- Negative 138 28 -?-?-?-?-?-?-?-?-?-?-?-?- MH-No VB, LOF. G ood FM. Flu vaccine. Larc. 01/27/23 -?-?-?-?-?-?-?-?-?--?-?-?- 29w 4d 226 lb 2 oz 137/87 Nega tive -?-?-?-?-?-?-?-?-?-?-?-?- Negative 154 30 -?-?-?-?-?-?-?-?-?-?-?-?- JV- tdap today. no cramping or spotting. no complaints. JV- tdap today. no cramping or spotting. no complaints. follow up growth ultrasound needed. (q 4 weeks) 02/09/23 -?-?-?-?-?-?-?-?-?-?-?-?- 31w 3d 227 lb 6 oz 115/77 Nega tive -?-?-?-?-?-?-?-?-?-?-?-?- Negative 150 33 -?-?-?-?-?-?-?-?-?-?-?-?- JV- no lof, vagi nal bleeding, or dec fm. growth scan tomorrow 02/27/23 -?-?-?-?-?-?-?-?-?-?-?-?- 34w 0d 230 lb 114/81 Negative -?-?-?-?-?-?-?-?-?-?-?-?- Negative 135 35 -?-?-?-?-?-?-?-?-?-?--?-?- KW- no vb/lof/ct x. good fm. NST for IVF today- reactive 03/05/23 -?-?-?-?-?-?-?-?-?-?-?-?- 34w 6d 230 lb 6 oz 126/84 Nega tive -?-?-?-?-?-?-?-?-?-?--?-?- Negative 150 -?-?-?-?-?-?-?-?-?-?-?-?- MH-NST only reac tive 03/11/23 -?-?-?-?-?-?-?-?-?-?-?-?- 35w 5d 229 lb 8 oz 127/87 Nega tive -?-?-?-?-?-?-?-?-?-?-?-?- Negative 145 -?-?-?-?-?-?-?-?-?-?-?-?- JV- no complaint s today. GBS now due to holiday coming up. plan for 39 week IO L. JV- no complaints today. GBS now due to holiday coming up. plan for 39 week IOL. NST reactive with one carrot like baseline change. baby sounds wildly reactive. 03/18/23 -?-?-?-?-?-?--?-?-?-?-?-?- 36w 5d 231 lb 125/85 Negative -?-?-?-?-?-?-?-?-?-?-?-?- Negative 150 37 -?-?-?-?-?-?-?-?-?-?-?-?- LC-GBS recollect ed. declines VE. consented for IOL. to schedule next week for 39 weeks after exam for am/pm on 04/03. LC-GBS recollected. declines VE. consented for IOL. to schedule next week for 39 weeks after exam for am/pm on 04/03. reactive nst. 03/26/23 -?-?-?-?-?-?-?-?-?-?-?-?- 37w 6d 229 lb 137/93 -?-?-?-?-?-?-?-?-?-?-?-?- 155 38 0 -?-?-?-?-?-?-?-?-?-?-?-?- KW- no vb/lof/ct x. good fm. reactive NST today. IOL for 04/0503/31/23 -?-?-?-?-?-?-?-?-?-?-?-?- 38w 4d 233 lb 129/89 Negative -?-?-?-?-?-?-?-?-?-?-?-?- Negative 140 39 -?-?-?-?-?-?-?-?-?-?-?-?- SM- no vb lof go od fm no regular ctx, scheduled for IOL NST FHR Rate Baby A Baseline: 150 Variability:: Moderate Accelerations:: 15 x 15 Decelerations:: None NST Reactive:: Yes FHR Category:: Category I Vital Signs Vital Signs Vital Signs: 04/05/23 19:20 04/05/23 19:20 04/05/23 19:21 Temperature Temperature Source Pulse Rate 112 H 109 H Blood Pressure 133/93 H BP Systolic 133 BP Diastolic 93 Pulse Ox 04/05/23 19:21 04/05/23 19:20 04/05/23 19:20 Temperature Temperature Source Temporal Pulse Rate Blood Pressure BP Systolic BP Diastolic Pulse Ox 98 97 04/05/23 19:20 04/05/23 19:40 04/05/23 19:40 Temperature 98.7 F Temperature Source Pulse Rate 94 Blood Pressure 139/89 H BP Systolic 139 BP Diastolic 89 Pulse Ox 04/06/23 00:15 04/06/23 00:15 04/06/23 00:15 Temperature Temperature Source Pulse Rate 98 Blood Pressure 137/71 H BP Systolic 137 BP Diastolic 71 Pulse Ox 96 04/06/23 00:15 04/06/23 04:31 04/06/23 04:31 Temperature 98.9 F Temperature Source Pulse Rate 114 H Blood Pressure 127/82 H BP Systolic 127 BP Diastolic 82 Pulse Ox 04/06/23 04:31 04/06/23 04:31 04/06/23 04:31 Temperature 98.6 F Temperature Source Temporal Pulse Rate Blood Pressure BP Systolic BP Diastolic Pulse Ox 97 04/06/23 04:31 04/06/23 07:33 04/06/23 07:33 Temperature Temperature Source Pulse Rate 102 H 96 Blood Pressure 124/83 H BP Systolic 124 BP Diastolic 83 Pulse Ox 04/06/23 07:33 04/06/23 07:29 04/06/23 07:29 Temperature 97.4 F L Temperature Source Temporal Pulse Rate Blood Pressure BP Systolic BP Diastolic Pulse Ox 97 04/06/23 10:03 04/06/23 10:03 04/06/23 10:03 Temperature Temperature Source Temporal Pulse Rate 87 Blood Pressure 133/80 H BP Systolic 133 BP Diastolic 80 Pulse Ox 04/06/23 10:03 04/06/23 11:32 04/06/23 11:32 Temperature 98.5 F Temperature Source Pulse Rate 110 H Blood Pressure BP Systolic BP Diastolic Pulse Ox 97 Weight Weight: 228 lb 9.91 oz Body Mass Index (BMI) 40.5 Labs Labs Labs: Blood Type A POSITIVE Antibody Screen NEGATIVE Hct 37.6 % (37-47) Hgb 12.6 g/dL (12.0-15.0) Pap Smear Negative Obstetrics Ultrasound Syphilis Total Ab Non-reactive Rubella IgG Antibody Reactive (Nonreactive) Hep Bs Antigen Non-Reactive (Nonreactive) Hepatitis C Antibody Non-Reactive (Nonreactive) Chlamydia DNA (RUBÉN) Negative (Negative) N.gonorrhoeae DNA (RUBÉN) Negative (Negative) HIV 1&2 Antibody Non-Reactive (Nonreactive) Glucose 1 Hr 50 gm 173 mg/dL (70-140) H Gest Glucose Tolerance MG/DL Miscellaneous Test
--- NOTE | 2023-04-06 12:51 | PCM.HP.OB ---
HPI - General General Date of Admission: 04/05/23 HPI Narrative JUAN LOUISE, is a 32 F who presents for IOL at 39+3 weeks due in IVF . complicated by obesity, monthly growth scans obtained. EFW: 2863g on 03/11, 62%. normal 3 hr GTT Maternal Data Information SONY Calculator Estimated Delivery Date Method Current WG Current Estimate 04/10/23 Conception 39w 3d Other Estimates 04/10/23 LMP (Certain) 39w 3d Final SONY: 04/10/23 Gestational age: 39+3 PFSH PFSH Medical History (Updated 04/06/23 @ 12:56 by Annetta Zurita CNM) Genetic testing Home Medications docosahexaenoic acid 200 mg capsule ( DHA) 200 mg PO 09/12/22 [History Last Taken 04/05/23 07:24 200 mg] metformin 1,000 mg tablet 1,000 mg PO DAILY insulin dependence pre- 09/12/22 [History Last Taken 04/05/23 07:25 1,000 mg] Allergy/AdvReac Type Severity Reaction Status Date / Time No Known Allergies Allergy Verified 04/05/23 19:24 Family History Father Thyroid cancer Grandmother Rectal cancer Grandfather Heart disease Surgical History History of tonsillectomy S/P foot surgery, right Social History household members: spouse current occupational status: employed current occupation: [employer] Smoking Status: Never smoker alcohol intake: current alcohol intake frequency: a few times a month substance use type: does not use caffeine: Yes what type of physical activity do you participate in: walking frequency: 3-4 times per week seatbelt use: always do you feel safe at home: Yes additional social history: - Hardik History 1 Elective abortions Hx Para 0 Spontaneous abortions Hx # Term Pregnancies Ectopic pregnancies Hx # Pregnancies Multiple births # of living children Visit Details Expected Delivery Route/Plan Labor Preferences- CB/BF classes: declines labor support person: Hardik labor intervention preferences: [] pain management options preferred: limited but open to epidural if needed cut cord/dad catch: cord : yes PP control planned: discussed discussed possible routes of delivery and associated risks: [] special requests: [] Plans Covid status: discussed Flu vaccine: given Tdap vaccine: [] Rhogam: na LARC form signed: yes Problem list reviewed and updated with the most current plan of care details and appropriate orders placed. Relevant counseling for the gestational age provided. Continue routine care and follow up unless otherwise noted in visit notes/problem list details OB Flowsheet Initial Weight: Not Recorded Date <del>?</del> EGA Weight BP Urine Prot <del>?</del> Glucose FHR FuHt Pres Dilation <del>?</del> Effaced St Visit Note 09/12/22 <del>?</del> 10w 0d 210 lb 135/71 <del>?</del> 190 <del>?</del> JV- CRL measuring 10 weeks 5 days. embryo transfer on 07/23/22 at 5 days gestation, was given sony of 04/10 by [facility]. had carrier screen, does not want NIPT. 10/06/22 <del>?</del> 13w 3d 214 lb 136/82 Negative <del>?</del> Negative 160 <del>?</del> LC- no vb/cramping. to obtain 3 hour GCT. on metformin for insulin resistance but not DM2. 11/06/22 <del>?</del> 17w 6d 215 lb 2 oz 136/84 Negative <del>?</del> Negative 148 <del>?</del> KW-no vb/ cramping. declines AFP. Anatomy US next week. no concerns today 09/12/23 <del>?</del> 21w 4d 220 lb 2 oz 121/77 Negative <del>?</del> Negative 145 <del>?</del> SM- no vb lof good fm n oreular ctx 12/16/22 <del>?</del> 23w 4d 220 lb 2 oz 92/60 <del>?</del> 145 23 <del>?</del> SM- no vb lof good fm n oregular ctx 01/12/23 <del>?</del> 27w 3d 224 lb 2 oz 120/84 Negative <del>?</del> Negative 138 28 <del>?</del> MH-No VB, LOF. Good FM. Flu vaccine. Larc. 01/27/23 <del>?</del> 29w 4d 226 lb 2 oz 137/87 Negative <del>?</del> Negative 154 30 <del>?</del> JV- tdap today. no cramping or spotting. no complaints. JV- tdap today. no cramping or spotting. no complaints. follow up growth ultrasound needed. (q 4 weeks) 02/09/23 <del>?</del> 31w 3d 227 lb 6 oz 115/77 Negative <del>?</del> Negative 150 33 <del>?</del> JV- no lof, vaginal bleeding, or dec fm. growth scan tomorrow 02/27/23 <del>?</del> 34w 0d 230 lb 114/81 Negative <del>?</del> Negative 135 35 <del>?</del> KW- no vb/lof/ctx. good fm. NST for IVF today- reactive 03/05/23 <del>?</del> 34w 6d 230 lb 6 oz 126/84 Negative <del>?</del> Negative 150 <del>?</del> MH-NST only reactive 03/11/23 <del>?</del> 35w 5d 229 lb 8 oz 127/87 Negative <del>?</del> Negative 145 <del>?</del> JV- no complaints today. GBS now due to holiday coming up. plan for 39 week IOL. JV- no complaints today. GBS now due to holiday coming up. plan for 39 week IOL. NST reactive with one carrot like baseline change. baby sounds wildly reactive. 03/18/23 <del>?</del> 36w 5d 231 lb 125/85 Negative <del>?</del> Negative 150 37 <del>?</del> LC-GBS recollected. declines VE. consented for IOL. to schedule next week for 39 weeks after exam for am/pm on 04/03. LC-GBS recollected. declines VE. consented for IOL. to schedule next week for 39 weeks after exam for am/pm on 04/03. reactive nst. 03/26/23 <del>?</del> 37w 6d 229 lb 137/93 <del>?</del> 155 38 0 <del>?</del> KW- no vb/lof/ctx. good fm. reactive NST today. IOL for 04/0503/31/23 <del>?</del> 38w 4d 233 lb 129/89 Negative <del>?</del> Negative 140 39 <del>?</del> SM- no vb lof good fm no regular ctx, scheduled for IOL NST FHR Rate Baby A Baseline: 150 Variability:: Moderate Accelerations:: 15 x 15 Decelerations:: None NST Reactive:: Yes FHR Category:: Category I ROS Cardiovascular Cardiovascular: Denies abdominal pain, chest pain, diaphoresis or dyspnea Respiratory/Chest Respiratory/Chest: Denies change in mental status, chest congestion, chest tightness, cough, shortness of breath at rest, shortness of breath with exertion, breast mass, breast pain, breast skin changes, breast swelling, change in breast shape or nipple discharge Genitourinary Genitourinary: Reports change in urinary stream Musculoskeletal Musculoskeletal: Reports none Integumentary Integumentary: Reports none Neurologic Neurologic: Reports none Psychiatric Psychiatric: Reports none Endocrine Endocrinology: Reports none Hematologic/Lymphatic Hematologic/Lymphatic: Reports none Allergic/Immunologic Allergic/Immunologic: Reports none Vital Signs Vital Signs Vital Signs: 04/05/23 19:20 04/05/23 19:20 04/05/23 19:21 Temperature Temperature Source Pulse Rate 112 H 109 H Blood Pressure 133/93 H BP Systolic 133 BP Diastolic 93 Pulse Ox 04/05/23 19:21 04/05/23 19:20 04/05/23 19:20 Temperature Temperature Source Temporal Pulse Rate Blood Pressure BP Systolic BP Diastolic Pulse Ox 98 97 04/05/23 19:20 04/05/23 19:40 04/05/23 19:40 Temperature 98.7 F Temperature Source Pulse Rate 94 Blood Pressure 139/89 H BP Systolic 139 BP Diastolic 89 Pulse Ox 04/06/23 00:15 04/06/23 00:15 04/06/23 00:15 Temperature Temperature Source Pulse Rate 98 Blood Pressure 137/71 H BP Systolic 137 BP Diastolic 71 Pulse Ox 96 04/06/23 00:15 04/06/23 04:31 04/06/23 04:31 Temperature 98.9 F Temperature Source Pulse Rate 114 H Blood Pressure 127/82 H BP Systolic 127 BP Diastolic 82 Pulse Ox 04/06/23 04:31 04/06/23 04:31 04/06/23 04:31 Temperature 98.6 F Temperature Source Temporal Pulse Rate Blood Pressure BP Systolic BP Diastolic Pulse Ox 97 04/06/23 04:31 04/06/23 07:33 04/06/23 07:33 Temperature Temperature Source Pulse Rate 102 H 96 Blood Pressure 124/83 H BP Systolic 124 BP Diastolic 83 Pulse Ox 04/06/23 07:33 04/06/23 07:29 04/06/23 07:29 Temperature 97.4 F L Temperature Source Temporal Pulse Rate Blood Pressure BP Systolic BP Diastolic Pulse Ox 97 04/06/23 10:03 04/06/23 10:03 04/06/23 10:03 Temperature Temperature Source Temporal Pulse Rate 87 Blood Pressure 133/80 H BP Systolic 133 BP Diastolic 80 Pulse Ox 04/06/23 10:03 04/06/23 11:32 04/06/23 11:32 Temperature 98.5 F Temperature Source Pulse Rate 110 H Blood Pressure BP Systolic BP Diastolic Pulse Ox 97 Weight Weight: 228 lb 9.91 oz Body Mass Index (BMI) 40.5 Physical Exam Const alert, oriented x3 and no apparent distress General Appearance: cooperative, comfortable and well kempt Orientation / Consciousness: awake and oriented to person Exam Limitations: no limitations HEENT normocephalic Neck full ROM Chest inspection of chest normal Resp normal respiratory effort, normal air movement and no retractions Effort and Inspection: able to speak in complete sentences and symmetric chest movement Cardio regular rate Peripheral Pulses: pulses 2+ throughout GI normal to inspection, nondistended, normoactive bowel sounds Inspection: gravid no CVA tenderness and appearance of the vagina normal External Female Exam: normal appearance of the urethra; Negative for external lesion OB / External & Speculum: external exam normal Manual OB Exam: estimated gestational size appropriate, presentation cephalic and dilated 0 Uterus Palpation: Negative for uterus tender Extremity normal to inspection Skin no rashes or lesions noted Neuro deep tendon reflexes 2+ bilaterally and gait normal Motor Exam: strength 5/5 throughout and clonus absent Psych Activity / Motor Behavior: appropriate eye contact Speech: normal speech Labs Labs Labs: Blood Type A POSITIVE Antibody Screen NEGATIVE Hct 37.6 % (37-47) Hgb 12.6 g/dL (12.0-15.0) Pap Smear Negative Obstetrics Ultrasound Syphilis Total Ab Non-reactive Rubella IgG Antibody Reactive (Nonreactive) Hep Bs Antigen Non-Reactive (Nonreactive) Hepatitis C Antibody Non-Reactive (Nonreactive) Chlamydia DNA (RUBÉN) Negative (Negative) N.gonorrhoeae DNA (RUBÉN) Negative (Negative) HIV 1&2 Antibody Non-Reactive (Nonreactive) Glucose 1 Hr 50 gm 173 mg/dL (70-140) H Gest Glucose Tolerance MG/DL Miscellaneous Test Assessment & Plan (1) Encounter for induction of labor: COMMENT: cytotec induction, then plan pitocin/matos once more favorabl/dilated. PLAN: updated on exam, poc and agrees with above. 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 (4) Supervision of high risk in first trimester: COMMENT: PRR, SONY 04/10/23 surprise : Hardik (5) : QUALIFIERS: Weeks of gestation: 38 weeks Qualified Code(s): Z3A.38 - 38 weeks gestation of COMMENT: carrier reviewed, declined genetic screening. declined AFP screening. nl anatomy. gbs neg
[2023-04-06] MEDS: 0.9% Normal Saline Single 100 ML IV.SOLN. INTRA-UTER (20:15)
[2023-04-06] MEDS: Ondansetron 4 MG/2 ML Vial IV (21:46)
[2023-04-06] MEDS: 0.9% Saline Lock 10 ML Syringe IV (21:46)
[2023-04-07] VITALS (133 sets, daily range): BP systolic 81–189; BP diastolic 37–123; PULSE 44–173; RESP 16; TEMP 36.7–37.9; O2SAT 81–100
[2023-04-07] MEDS: Oxytocin 15 Units/NS 250ml 15 UNITS/250 ML IV.SOLN 2 UNITS IV (00:06)
[2023-04-07] MEDS: fentaNYL 100 MCG/2 ML Ampul IV ×2 (00:18→04:16)
[2023-04-07] MEDS: CHLORHEXIDINE GLUC 2% CLOTH 1 EACH TOWELETTE TOPICAL ×2 (02:34→14:29)
--- NOTE | 2023-04-07 07:50 | PCM.PN.BLA ---
Progress Note Coping well with contractions. Desires epidural when pain becomes worse. current tracing: FHT: 140 Moderate variability reactive no decelerations category I tracing [place]: 3-5 minute Contractions Membranes:Ruptured at 0735 for clear fluid SVE:3/80/-1 A/P: Continue with position changes Titrate pitocin per protocol Epidural per anesthesia when desired Anticipate Dr West aware of above assessment and agrees with plan of care Assessment & Plan Assessment/Plan (1) Encounter for induction of labor: (2) Abnormal glucose affecting : (3) Obesity affecting : QUALIFIERS: Trimester: second trimester Obesity type affecting : unspecified obesity Qualified Code(s): O99.212 - Obesity complicating , second trimester (4) Infertility: (5) : QUALIFIERS: Weeks of gestation: 38 weeks Qualified Code(s): Z3A.38 - 38 weeks gestation of (6) Supervision of high risk in first trimester: (7) Genetic testing: Capacity Legal Wastewater Process Engineer Reflex Medical hold order details:: IF a medical hold is selected below, a suggested order for a MEDICAL HOLD will reflex upon signing the document. Next of kin: [place] law dictates a PRIORITY LIST for identifying legal decision-maker/legal next of kin in the following order (LNOK): 1st: The patient?s legal guardian, if any 2nd: The patient's spouse (if status is questionable, consult Risk Management) 3rd: The patient?s adult child(lala) (majority, if multiple children) 4th: The patient?s parents 5th: The patient?s adult siblings (majority, if multiple children siblings) Multi Select Codes Urinary/Genital Urinary/Genital CPT Codes: No Charge
[2023-04-07] MEDS: LACTATED RINGERS 500 ML 999 ML IV ×2 (08:45→15:08)
[2023-04-07] MEDS: Lactated Ringers 1,000 ML 200 ML IV ×2 (09:16→14:28)
[2023-04-07] MEDS: fentaNYL-bupivacaine (epidural) 100 ML BAG EPIDURAL ×2 (09:45→14:27)
--- NOTE | 2023-04-07 11:45 | PN_ITS ---
Progress Note comfortable with epidural current tracing: FHT: 140 Moderate variability reactive no decelerations category I tracing [place]: 3 minute Contractions- IUPC placed by nursing Membranes:ruptured this am remains clear SVE:3/85/-1 per nursing at 1100 A/P: Continue with position changes Titrate pitocin per protocol Epidural per anesthesia Anticipate Dr West aware of above assessment and agrees with plan of care Assessment & Plan Assessment/Plan (1) Encounter for induction of labor: (2) Abnormal glucose affecting : (3) Obesity affecting : QUALIFIERS: Trimester: second trimester Obesity type affecting : unspecified obesity Qualified Code(s): O99.212 - Obesity complicating , second trimester (4) Infertility: (5) : QUALIFIERS: Weeks of gestation: 38 weeks Qualified Code(s): Z3A.38 - 38 weeks gestation of (6) Supervision of high risk in first trimester: (7) Genetic testing: Capacity Legal Valve Repairer Reflex Medical hold order details:: IF a medical hold is selected below, a suggested order for a MEDICAL HOLD will reflex upon signing the document. Next of kin: [place] law dictates a PRIORITY LIST for identifying legal decision-maker/legal next of kin in the following order (LNOK): 1st: The patient?s legal guardian, if any 2nd: The patient's spouse (if status is questionable, consult Risk Management) 3rd: The patient?s adult child(lala) (majority, if multiple children) 4th: The patient?s parents 5th: The patient?s adult siblings (majority, if multiple children siblings) Multi Select Codes Urinary/Genital Urinary/Genital CPT Codes: No Charge
--- NOTE | 2023-04-07 16:39 | PN_ITS ---
Progress Note comfortable with epidural current tracing: FHT: 140 Moderate variability reactive occasional late decelerations category II tracing [place]: 2-3 minute Contractions Membranes:ruptured this am remains clear SVE:8.5 reviewed tracing abnormalities since last note: collaboration with Dr Avila at this time for Cat II FHT tracing. resolves with position changes and interventions. She reviewed tracing from office and agrees with plan to continue current POC A/P: Continue with position changes Titrate pitocin per protocol Epidural per anesthesia Anticipate Dr West aware of above assessment and agrees with plan of care Assessment & Plan Assessment/Plan (1) Encounter for induction of labor: (2) Abnormal glucose affecting : (3) Obesity affecting : QUALIFIERS: Trimester: second trimester Obesity type affecting : unspecified obesity Qualified Code(s): O99.212 - Obesity complicating , second trimester (4) Infertility: (5) : QUALIFIERS: Weeks of gestation: 38 weeks Qualified Code(s): Z3A.38 - 38 weeks gestation of (6) Supervision of high risk in first trimester: (7) Genetic testing: Capacity Legal Director Of Assessment Reflex Medical hold order details:: IF a medical hold is selected below, a suggested order for a MEDICAL HOLD will reflex upon signing the document. Next of kin: [place] law dictates a PRIORITY LIST for identifying legal decision-maker/legal next of kin in the following order (LNOK): 1st: The patient?s legal guardian, if any 2nd: The patient's spouse (if status is questionable, consult Risk Management) 3rd: The patient?s adult child(lala) (majority, if multiple children) 4th: The patient?s parents 5th: The patient?s adult siblings (majority, if multiple children siblings) Multi Select Codes Urinary/Genital Urinary/Genital CPT Codes: No Charge
[2023-04-07] MEDS: Oxytocin 15 Units/NS 250ml 15 UNITS/250 ML IV.SOLN 83 UNITS IV ×2 (18:13→19:10)
[2023-04-07] MEDS: Oxytocin 10 UNITS/ML Vial IM (18:20)
[2023-04-07] MEDS: Methylergonovine 0.2 MG/ML Ampul 0.200000000000000011 MG IM (18:21)
[2023-04-07] MEDS: miSOPROStol 200 MCG Tablet 1000 MCG RC (18:24)
[2023-04-07] MEDS: TRANEXAMIC ACID 1,000 MG in 0.9% Normal Saline (100mL Bag) 100 ML 440 MG IV (19:01)
[2023-04-07] MEDS: Cefazolin 2 GM in 0.9% Normal Saline (100mL Bag) 100 ML IV (19:05)
--- NOTE | 2023-04-07 19:08 | OP.PCM_ITS ---
Assessment & Plan (1) Vaginal delivery: COMMENT: KW/JV IOL IVF boy Deon (2) Encounter for induction of labor: COMMENT: cytotec induction, then plan pitocin/matos once more favorabl/dilated. (3) Abnormal glucose affecting : COMMENT: Normal 3hr GTT (4) Obesity affecting : QUALIFIERS: Trimester: second trimester Obesity type affecting : unspecified obesity Qualified Code(s): O99.212 - Obesity complicating , second trimester COMMENT: early glucola growth scans q4 weeks 62% at 36 weeks for BMI >40 start nsts at 34 weeks weekly (5) Infertility: COMMENT: embryo transferred at 5 days on 07/23/2022 echo at 24 week- WNL deliver at 39 weeks (6) : QUALIFIERS: Weeks of gestation: 38 weeks Qualified Code(s): Z3A.38 - 38 weeks gestation of COMMENT: carrier reviewed, declined genetic screening. declined AFP screening. nl anatomy. 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 (9) hemorrhage: COMMENT: 1500cc EBL Maternal Data Information SONY Calculator Estimated Delivery Date Method Current WG Current Estimate 04/10/23 Conception 39w 4d Other Estimates 04/10/23 LMP (Certain) 39w 4d Final SONY: 04/10/23 Final SONY Source: [place] >20 weeks Gestational age: 39.4 Vaginal Delivery Maternal Presentation Maternal Presentation: Medically Indicated Induction Maternal Presentation: Progressed well to 10cm dilated and made steady progress with effective maternal pushing. Delivered the head in ROSITA presentation. The head was delivered atraumatically and no nuchal cord was identified. The anterior and posterior shoulders delivered without complication followed by the rest of the infant and the was placed on the maternal abdomen. Delayed cord clamping was employed for approximately 5 minutes. Cord was clamped and cut and gentle traction was applied to the cord and the placenta delivered spontaneously. Immediately following, it was noted to be intact with a 3 vessel cord. Started having large amount of uterine bleeding and vaginal sweep performed with small membrane extracted from uterus. Methergine and Pitocin IM, Pitocin IV, rectal Cytotec 1000mg given. Dr Sellers called for evaluation. See her note for details. The perineum and vagina were inspected and noted to have a second degree laceration which was repaired with 3-0 Vicryl in the usual fashion by Dr Sellers. EBL was 1500cc. Patient and infant tolerated delivery well. Apgars 8/9. Dr Sellers notified of vaginal delivery and orders reviewed and placed by Dr Avila. Physician agrees with current plan of care. Type of Induction: Pitocin, Matos Bulb and Cytotec Medical Reason for Induction: - (IVF) Operative Information Date of Procedure: 04/07/23 Pre-Operative Diagnosis: See AP comments Post-Operative Diagnosis: Same Surgery / Procedure Performed: Spontaneous Vaginal Delivery vertical contour band saw operator #1: Ana Noble Type of Anesthesia: Epidural Estimated Blood Loss: 1500 Time of Delivery: 18:04 Findings Presentation: ROSITA Amniotic Membrane Rupture Type: Artificial Amniotic Fluid Description: Clear Placental Delivery Description: Spontaneous and Manual Removal (sweep of membranes) Placenta Disposition: [facility] Cord Vessel Description: 3 Vessels Cord Entanglement: None Infant A Gender: Male (1 minute): 8 (5 minute): 9 Delayed Cord Clamping: Yes Post Vaginal Delivery Medications Given After Delivery: IV Pitocin, IM Pitocin and IM Methergin Episiotomy Description: None Laceration: 2nd degree Complication Complications: None Multi Select Codes Urinary/Genital Urinary/Genital CPT Codes: 49578 Vaginal Delivery [facility]
[2023-04-07 19:09] LABS: Absolute Lymphocyte Count 3.35 X10^3/uL (0.83-4.51); Absolute Neutrophil Count 15.3 X10^3/uL (2.0-7.7); Basophil# 0.03 X10^3/uL; Basophil% 0.1 % (0-1); Eosinophil# 0.04 X10^3/uL; Eosinophils% 0.2 % (0-5); Lymphocyte # 3.35 X10^3/ul (0.83-4.51); Lymphocyte % 16.6 % (19-41); Mean Corp Hgb Conc 32.4 g/dL (32-36); Mean Corpuscular Hgb 27.5 pg (27.0-32.0); Mean Corpuscular Volume 84.7 fL (81-99); Mean Platelet Vol. 10.4 fl (6.2-12.0); Monocyte# 1.32 X10^3/uL; Monocyte% 6.5 % (0-10); NRBC Flagged by Analyzer 0 % (0-5); Neutrophil # 15.29 X10^3/uL (2.7-7.7); Neutrophil % 75.9 % (47-70); Platelet Count 320 K/mm3 (150-450); RBC Distribution Width CV 13.4 % (11.6-14.6); RBC Distribution Width SD 41.2 fl (35.1-43.9); Red Blood Count 4.37 M/mm3 (4.2-5.4); White Blood Count 20.2 K/mm3 (4.4-11.0)
[2023-04-07] MEDS: 0.9% Normal Saline (1000mL) 1,000 ML 15 ML IV (19:25)
[2023-04-07 19:26] LABS: Partial Thromboplast Time 26.9 Seconds (24.1-36.2)
[2023-04-07] MEDS: 0.9% Saline Lock 10 ML Syringe IV (19:27)
[2023-04-07 19:42] LABS: Fibrinogen 661 mg/dl (203-444)
--- NOTE | 2023-04-07 20:03 | NURSING ---
Placenta delivered at 181. Placenta fragment retained and manually removed by dr smith
[2023-04-07] MEDS: Ondansetron 4 MG/2 ML Vial IV (20:11)
[2023-04-08] VITALS (14 sets, daily range): BP systolic 111–126; BP diastolic 61–81; PULSE 107–150; RESP 16–20; TEMP 36.8–38.2; O2SAT 97–99
[2023-04-08 00:20] LABS: Hematocrit 33.7 % (37-47); Hemoglobin 11.4 g/dL (12.0-15.0); Mean Corp Hgb Conc 33.8 g/dL (32-36); Mean Corpuscular Hgb 27.9 pg (27.0-32.0); Mean Corpuscular Volume 82.4 fL (81-99); Mean Platelet Vol. 10.2 fl (6.2-12.0); Platelet Count 227 K/mm3 (150-450); RBC Distribution Width CV 13.5 % (11.6-14.6); RBC Distribution Width SD 39.9 fl (35.1-43.9); Red Blood Count 4.09 M/mm3 (4.2-5.4)
[2023-04-08] MEDS: Acetaminophen 500 MG Tablet 1000 MG PO (01:29)
[2023-04-08 05:57] LABS: Hematocrit 30.2 % (37-47); Hemoglobin 10.2 g/dL (12.0-15.0); Mean Corp Hgb Conc 33.8 g/dL (32-36); Mean Corpuscular Hgb 27.6 pg (27.0-32.0); Mean Corpuscular Volume 81.8 fL (81-99); Mean Platelet Vol. 10.4 fl (6.2-12.0); POSITIVE DIFFERENTIAL YES; Platelet Count 205 K/mm3 (150-450); RBC Distribution Width CV 13.7 % (11.6-14.6); RBC Distribution Width SD 40.5 fl (35.1-43.9); Red Blood Count 3.69 M/mm3 (4.2-5.4); White Blood Count 25.2 K/mm3 (4.4-11.0)
[2023-04-08 06:49] LABS: Differential Comment S
[2023-04-08 06:52] LABS: Differential Indicated SCAN CRITERIA MET
--- NOTE | 2023-04-08 07:40 | PN.OBGYN_ITS ---
Subjective Subjective Patient doing well without complaints. Tolerating PO. Ambulating and voiding without difficulty. Feeding well. Denies chest pain, shortness of breath, palpitations,calf pain/swelling, fevers, chills, lightheadedness. States feels much improvement since receiving blood transfusion. Objective Data Objective Data Vital Signs: Vital Signs Temp Pulse Resp BP Pulse Ox O2 Del Method 99.4 F H 116 H 18 126/67 H 99 Room Air 04/08/23 00:08 04/08/23 04:40 04/08/23 04:40 04/08/23 04:40 04/07/23 23:09 04/08/23 04:40 Oxygen Delivery Method Room Air Weight: 228 lb 9.91 oz Body Mass Index (BMI) 40.5 Intake & Output: Intake and Output for Last 24 Hours 04/06/23 04/07/23 04/08/23 23:59 23:59 23:59 Intake Total 585 / 585 5029.87 / 5029.87 Output Total 700 / 700 3400 / 3400 100 / 100 Balance -115 / -115 1629.87 / 1629.87 -100 / -100 Lab / Micro Data 04/08/23 05:40 04/05/23 19:20 Labs: Laboratory Results - last 24 hr 04/05/23 19:20: Crossmatch See Detail 04/07/23 18:55: WBC 20.2 H, RBC 4.37, Hgb 12.0, Hct 37.0, MCV 84.7, MCH 27.5, MCHC 32.4, RDW Std Deviation 41.2, RDW Coeff of Manda 13.4, Plt Count 320, MPV 10.4, Immature Gran % (Auto) 0.700, Neut % (Auto) 75.9 H, Lymph % (Auto) 16.6 L, [place] % (Auto) 6.5, Eos % (Auto) 0.2, Baso % (Auto) 0.1, Absolute Neuts (auto) 15.3 H, Absolute Lymphs (auto) 3.35, Nucleated RBC % 0, PT 13.0, INR 1.0, APTT 26.9, Fibrinogen 661 H 04/08/23 00:15: WBC 28.0 H, RBC 4.09 L, Hgb 11.4 L, Hct 33.7 L, MCV 82.4, MCH 27.9, MCHC 33.8, RDW Std Deviation 39.9, RDW Coeff of Manda 13.5, Plt Count 227, MPV 10.2 04/08/23 05:40: WBC 25.2 H, RBC 3.69 L, Hgb 10.2 L, Hct 30.2 L, MCV 81.8, MCH 27.6, MCHC 33.8, RDW Std Deviation 40.5, RDW Coeff of Manda 13.7, Plt Count 205, MPV 10.4, Neut % (Auto) Not Reportable, Differential Comment S, Diff Path Review May foll Physical Exam Const alert and oriented x3 HEENT normocephalic Eyes PERRL Neck full ROM Resp normal respiratory effort GI soft to palpation GI Narrative: FF below U Assessment & Plan (1) Vaginal delivery: COMMENT: KW/JV IOL IVF quincy Chavarria (2) hemorrhage: QUALIFIERS: hemorrhage type: other immediate Qualified Code(s): O72.1 - Other immediate hemorrhage COMMENT: 1500cc EBL PLAN: Plan s/p PPD # 1 1. routine post delivery care 2. breast feeding- support given 3. rh positive 4. rubella immune Capacity Legal Software Development Test Engineer Reflex Medical hold order details:: IF a medical hold is selected below, a suggested order for a MEDICAL HOLD will reflex upon signing the document. Next of kin: [place] law dictates a PRIORITY LIST for identifying legal decision-maker/legal next of kin in the following order (LNOK): 1st: The patient?s legal guardian, if any 2nd: The patient's spouse (if status is questionable, consult Risk Management) 3rd: The patient?s adult child(lala) (majority, if multiple children) 4th: The patient?s parents 5th: The patient?s adult siblings (majority, if multiple children siblings)
[2023-04-08 11:07] LABS: Absolute Lymphocyte Count 3.48 X10^3/uL (0.83-4.51); Absolute Neutrophil Count 19.8 X10^3/uL (2.0-7.7); Basophil# 0.05 X10^3/uL; Basophil% 0.2 % (0-1); Eosinophil# 0.02 X10^3/uL; Eosinophils% 0.1 % (0-5); Lymphocyte # 3.48 X10^3/ul (0.83-4.51); Lymphocyte % 13.8 % (19-41); Monocyte# 1.62 X10^3/uL; Monocyte% 6.4 % (0-10); Neutrophil % 78.7 % (47-70)
[2023-04-08] MEDS: Naproxen 500 MG Tablet PO (12:40)
[2023-04-09 01:32] VITALS: PULSE 109; O2SAT 99
[2023-04-09 01:33] VITALS: BP 118/63; PULSE 114
[2023-04-09 02:00] VITALS: BP 118/53; PULSE 110; RESP 15; TEMP 36.4; O2SAT 99
--- NOTE | 2023-04-09 07:25 | PCM.PN.OB ---
Subjective Subjective Patient doing well without complaints. Tolerating PO. Ambulating and voiding without difficulty. infant feeding well. Denies chest pain, shortness of breath, calf pain/swelling, fevers, chills, lightheadedness. Objective Data Objective Data Vital Signs: Vital Signs Temp Pulse Resp BP Pulse Ox O2 Del Method 97.5 F L 110 H 15 118/53 L 99 Room Air 04/09/23 02:00 04/09/23 02:00 04/09/23 02:00 04/09/23 02:00 04/09/23 02:00 04/09/23 02:00 Oxygen Delivery Method Room Air Weight: 228 lb 9.91 oz Body Mass Index (BMI) 40.5 Intake & Output: Intake and Output for Last 24 Hours 04/07/23 04/08/23 04/09/23 23:59 23:59 23:59 Intake Total 5029.87 / 5029.87 Output Total 3400 / 3400 100 / 100 Balance 1629.87 / 1629.87 -100 / -100 Lab / Micro Data 04/08/23 05:40 04/05/23 19:20 Labs: Laboratory Results - last 24 hr 04/08/23 05:40: Immature Gran % (Auto) 0.800, Neut % (Auto) 78.7 H, Lymph % (Auto) 13.8 L, [place] % (Auto) 6.4, Eos % (Auto) 0.1, Baso % (Auto) 0.2, Absolute Neuts (auto) 19.8 H, Absolute Lymphs (auto) 3.48 ROS Constitutional Constitutional: Reports systems reviewed and no addt'l complaints, except as documented Cardiovascular Cardiovascular: Reports systems reviewed and no addt'l complaints, except as documented Respiratory/Chest Respiratory/Chest: Reports systems reviewed and no addt'l complaints, except as documented Gastrointestinal Gastrointestinal: Reports systems reviewed and no addt'l complaints, except as documented Physical Exam Const alert, oriented x3 and no apparent distress HEENT Head and Scalp: atraumatic Resp normal respiratory effort GI soft to palpation and non-tender Bimanual Exam - Vag & Uterus: uterus non-tender Uterus Palpation: uterus fundus firm (below Umbilicus) Assessment & Plan (1) Vaginal delivery: COMMENT: KW/JV IOL IVF boy Deon PLAN: Plan s/p PPD # 2 1. routine post delivery care 2. breast feeding- support given 3. rh positive 4. rubella immune Capacity Legal Associate Account Executive Reflex Medical hold order details:: IF a medical hold is selected below, a suggested order for a MEDICAL HOLD will reflex upon signing the document. Next of kin: [place] law dictates a PRIORITY LIST for identifying legal decision-maker/legal next of kin in the following order (LNOK): 1st: The patient?s legal guardian, if any 2nd: The patient's spouse (if status is questionable, consult Risk Management) 3rd: The patient?s adult child(lala) (majority, if multiple children) 4th: The patient?s parents 5th: The patient?s adult siblings (majority, if multiple children siblings)
--- NOTE | 2023-04-09 07:26 | DCINST_ITS ---
Discharge Instructions Diet Discharge Diet: No restrictions Activity Discharge Activity: Return to Normal Activity, May Not Drive (while taking narcotic pain medications.) and May Shower May resume sexual activity in: 4-6 weeks Dressing / Incision Call your doctor if your incision/area has: Continuous Slow Oozing, Sudden Increased Bleeding, Increased Pain/ Swelling, Increased Redness and Foul Smelling Discharge Follow Up Care Please Follow Up With: Annita Engle MD When: Call [phone] to make an appointment with your doctor in 6 weeks. If you had elevated blood pressure or 4th degree laceration, you will need to be seen in 2 weeks. Test Results: Test results from this visit will be discussed in further detail at your follow- up appointment, if applicable. Discharge Plan Admission Admit Date/Time: 04/05/23 18:56 Attending Provider: Tati Avila Primary Care Provider: MILO GRIMES Discharge Orders/Prescriptions Prescriptions: No Action metformin 1,000 mg tablet 1,000 mg PO DAILY DHA 200 mg capsule 200 mg PO Referrals / Follow Up: MILO GRIMES NP-C [Primary Care Provider] - Disposition Disposition (needs filled in before D/C Order can be placed): Home, Self Care
[2023-04-09 09:10] VITALS: BP 121/55; PULSE 110; RESP 16; TEMP 37.1; O2SAT 99
[2023-04-09 09:48] LABS: Pathologist Review Reviewed
== END 2023-04-09 11:20 | disposition home or self-care (01) | DRG 806 ==
PROVIDERS: Advanced Practice Midwife; Admitting Provider Obstetrics & Gynecology; PCP Nurse Practitioner Family; Visit Provider Obstetrics & Gynecology
DX: O76 Abnormality in fetal heart rate and rhythm complicating labor and delivery (principal); Z37.0 Single live birth; O72.1 Other immediate postpartum hemorrhage; O99.214 Obesity complicating childbirth; Z14.8 Genetic carrier of other disease; O70.1 Second degree perineal laceration during delivery; Z3A.39 39 weeks gestation of pregnancy
CPT/HCPCS: 59025; 59050; 76815; 82565; 82570; 84156; 84450; 84460; 84550; 85025; 85027; 85384; 85610; 85730; 86780; 86850; 86900; 86901; 86920; 86922; 99221; J7030; J7120; P9016; A4216; G0378; J2405

== ENCOUNTER → 2023-04-10 | Outpatient (CLI) | payer OTHER, SELFPAY ==
--- OUTSIDE RECORDS SUMMARY | 2023-04-10 15:26 | XMS RPT_ITS | CCD ---
Author Name Unknown Address [address] [place] [address] Organization [facility] Care Team Providers Care Microfilm Clerk Name Role Phone MARIA FERNANDA SANTIZO Attending UnavailAugustina Love Unavailable Unavailable Unavailable NEVAEH BAKER Attending Unavailable Unavailable Primary Care Provider lAex [place] [facility] Primary Care Unavailable HARRY NASCIMENTO Attending Unavailable HARRY NASCIMENTO Referring Unavailable NO PRIMARY CARE, Primary Care Unavailable NURIA MCGINNIS Referring UnavailKAYLEEN Womack Attending Unavailable Medications Current Medications Medication Drug Class(es) Dates Sig (Normalized) Sig (Original) polymyxin b 95754 unt/ml / trimethoprim 1 mg/ml ophthalmic solution [...] 08:20-0400 Body temperature 98.1 [degF] Kelley Lai SCANNING COORDINATOR.PATTERN CHANGER AND REPAIRER Work Phone: [facility] 08-24-2022 08:20-0400 Body weight 96.16 kg Kelley Savagek SCANNING COORDINATOR.PATTERN CHANGER AND REPAIRER Work Phone: [facility] 08-24-2022 08:20-0400 Diastolic blood pressure 80 mm[Hg] Kelley Lai SCANNING COORDINATOR.[facility] Work Phone: [facility] 08-24-2022 08:20-0400 Heart rate 120 /min Kelley Lai SCANNING COORDINATOR.[facility] Work Phone: [facility] 08-24-2022 08:20-0400 Respiratory rate 16 /min Kelley Lai SCANNING COORDINATOR.[facility] Work Phone: [facility] 08-24-2022 08:20-0400 SaO2% (BldA) [Mass fraction] 98 % Kelley Savagek SCANNING COORDINATOR.PATTERN CHANGER AND REPAIRER Work Phone: [facility] 08-24-2022 08:20-0400 Systolic blood pressure 130 mm[Hg] Kelley Lai SCANNING COORDINATOR.[facility] Work Phone: [facility] 10-22-2020 15:24-0400 Body height 160.02 cm Augustina Cochran Work Phone: [facility] Work Phone: 10-22-2020 15:24-0400 Body mass index (BMI) [Ratio] 38.97 kg/m2 Augustina Cochran Work Phone: [facility] Work Phone: 10-22-2020 15:24-0400 Body surface area Derived from formula 2.01 m2 Augustina Cochran Work Phone: [facility] Work Phone: 10-22-2020 15:24-0400 Body temperature 97.7 [degF] Augustina Cochran Work Phone: [facility] Work Phone: 10-22-2020 15:24-0400 Body weight 99.79 kg Augustina Cochran Work Phone: [facility] Work Phone: 10-22-2020 15:24-0400 Diastolic blood pressure 70 mm[Hg] Augustina Cochran Work Phone: [facility] Work Phone: 10-22-2020 15:24-0400 Heart rate 111 /min Augustina Cochran Work Phone: [facility] Work Phone: 10-22-2020 15:24-0400 SaO2% (BldA) [Mass fraction] 98 % Augustina Cochran Work Phone: [facility] Work Phone: 10-22-2020 15:24-0400 Systolic blood pressure 124 mm[Hg] Augustina Cochran Work Phone: [facility] Work Phone: Encounters Encounter Date Encounter Type Care Provider Facility Start: 12-16-2022 End: 12-16-2022 ambulatory NO PRIMARY CARE [facility] Start: 11-13-2022 End: 11-13-2022 ambulatory NO PRIMARY CARE [facility] Start: 08-24-2022 End: 08-24-2022 ambulatory Facility:[facility] Start: 08-24-2022 End: 08-24-2022 Patient encounter procedure Kelley Hoyt APRN.SAHNA Work Phone: [facility] Care Procedures Date Procedure Procedure Detail Performing Clinician Tonsillectomy and adenoidectomy Augustina Cochran Work Phone: Plan of Treatment Date Care Activity Detail Author Start: 11-21-2022 Influenza vaccination INFLUENZA (Sea son Ended) [facility] Start: 03-23-2022 DEPRESSION ASSESSMENT DEPRESSION ASS ESSMENT [facility] Start: 09-30-2021 Urine microalbumin profile DTA P,TDAP,TD (8 - Td or Tdap) [facility] Start: 2013 PAP TESTING PAP TESTING [facility] Start: 2010 HEPATITIS C SCREENING HEPATITIS C SC LONNY [facility] Start: 2010 HIV SCREENING HIV SCREENING [facility] Start: 06-10-1993 COVID-19 VACCINE (#1) COVID-19 VACCI NE (#1) [facility] Immunizations Immunization Date Immunization Notes Care Provider Fa berna 10-01-2011 Meningococcal, MCV4, unspecified conjugate formulation(groups A, C, Y and W-135) Kelley Hoyt APRN.PATTERN CHANGER AND REPAIRER Work Phone: [facility] 10-01-2011 tetanus toxoid, redu melissa diphtheria toxoid, and acellular pertussis vaccine, adsorbed Kelley Hoyt APRN.PATTERN CHANGER AND REPAIRER Work Phone: [facility] 06-01-2008 human papilloma viru s vaccine, quadrivalent Kelley Hoyt APRN.PATTERN CHANGER AND REPAIRER Work Phone: [facility] Work Phone: 06-01-2008 varicella virus vaccine Angel Hoyt APRN.PATTERN CHANGER AND REPAIRER Work Phone: [facility] Work Phone: 02-01-2008 human papilloma viru s vaccine, quadrivalent Kelley Hoyt APRN.PATTERN CHANGER AND REPAIRER Work Phone: [facility] Work Phone: 11-30-2007 hepatitis A vaccine, unspecified formulation Kelley Lai SCANNING COORDINATOR.PATTERN CHANGER AND REPAIRER Work Phone: [facility] Work Phone: 11-30-2007 human papilloma viru s vaccine, quadrivalent Kelleyjaney Hoyt SCANNING COORDINATOR.PATTERN CHANGER AND REPAIRER Work Phone: [facility] Work Phone: 11-27-2006 hepatitis A vaccine, unspecified formulation Kelley Hoyt SCANNING COORDINATOR.PATTERN CHANGER AND REPAIRER Work Phone: [facility] Work Phone: 01-26-2006 influenza virus vaccine, unspecified formulation Kelley Hoyt SCANNING COORDINATOR.[facility] Work Phone: [facility] Work Phone: 11-08-2004 diphtheria and tetan us toxoids, adsorbed for pediatric use Kelleyjaney Hoyt SCANNING COORDINATOR.[facility] Work Phone: [facility] Work Phone: 11-08-2004 Meningococcal, MCV4, unspecified conjugate formulation(groups A, C, Y and W-135) Kelley Hoyt APRN.PATTERN CHANGER AND REPAIRER Work Phone: [facility] Work Phone: 10-30-2000 varicella virus vaccine Angel Hoyt APRN.[facility] Work Phone: [facility] Work Phone: 01-05-1998 diphtheria, tetanus toxoids and acellular pertussis vaccine Kelley Hoyt APRN.PATTERN CHANGER AND REPAIRER Work Phone: [facility] Work Phone: 01-05-1998 measles, mumps and rubella virus vaccine Kelley Hoyt SCANNING COORDINATOR.PATTERN CHANGER AND REPAIRER Work Phone: [facility] Work Phone: 01-05-1998 trivalent poliovirus vaccine, live, oral Kelley Hoyt APRN.PATTERN CHANGER AND REPAIRER Work Phone: [facility] Work Phone: 03-26-1994 diphtheria, tetanus toxoids and acellular pertussis vaccine Kelley Hoyt APRN.PATTERN CHANGER AND REPAIRER Work Phone: [facility] Work Phone: 03-26-1994 haemophilus influenz ae type b vaccine, HbOC conjugate Kelley Lai SCANNING COORDINATOR.[facility] Work Phone: [facility] Work Phone: 12-26-1993 measles, mumps and rubella virus vaccine Kelley Lai SCANNING COORDINATOR.[facility] Work Phone: [facility] Work Phone: 07-11-1993 diphtheria, tetanus toxoids and pertussis vaccine Kelley Lai SCANNING COORDINATOR.[facility] Work Phone: [facility] Work Phone: 07-11-1993 haemophilus influenz ae type b vaccine, HbOC conjugate Kelley Lai SCANNING COORDINATOR.[facility] Work Phone: [facility] Work Phone: 07-11-1993 hepatitis B vaccine, pediatric or pediatric/adolescent dosage Kelley Lai SCANNING COORDINATOR.[facility] Work Phone: [facility] Work Phone: 07-11-1993 trivalent poliovirus vaccine, live, oral Kelley Lai SCANNING COORDINATOR.[facility] Work Phone: [facility] Work Phone: 04-25-1993 diphtheria, tetanus toxoids and pertussis vaccine Kelley Lai SCANNING COORDINATOR.[facility] Work Phone: [facility] Work Phone: 04-25-1993 haemophilus influenz ae type b vaccine, HbOC conjugate Kelley Lai SCANNING COORDINATOR.PATTERN CHANGER AND REPAIRER Work Phone: [facility] Work Phone: 04-25-1993 trivalent poliovirus vaccine, live, oral Kelley Lai SCANNING COORDINATOR.[facility] Work Phone: [facility] Work Phone: 02-07-1993 diphtheria, tetanus toxoids and pertussis vaccine Kelley Lai SCANNING COORDINATOR.[facility] Work Phone: [facility] Work Phone: 02-07-1993 haemophilus influenz ae type b vaccine, HbOC conjugate Kelley Hoyt APRN.PATTERN CHANGER AND REPAIRER Work Phone: [facility] Work Phone: 02-07-1993 hepatitis B vaccine, pediatric or pediatric/adolescent dosage Kelley Hoyt SCANNING COORDINATOR.PATTERN CHANGER AND REPAIRER Work Phone: [facility] Work Phone: 02-07-1993 trivalent poliovirus vaccine, live, oral Kelley Hoyt SCANNING COORDINATOR.PATTERN CHANGER AND REPAIRER Work Phone: [facility] Work Phone: 1992 hepatitis B vaccine, pediatric or pediatric/adolescent dosage Kelley Hoyt SCANNING COORDINATOR.PATTERN CHANGER AND REPAIRER Work Phone: [facility] Work Phone: Payers Date Payer Category Payer Unknown 2016 Unknown [id number] 1992 Unknown [id number] 1992 Unknown [id number] [id number] 1992 Unknown [id number] 1992 Unknown [id number] [id number]. [id number] Social History Date Type Detail Facility Consumes alcohol occasionally Consumes alcohol occasionally [facility] Work Phone: Start: 08-24-2022 Tobacco smoking status NHIS Never smoked tobacco [facility] Start: 08-24-2022 Tobacco use and exposure Smokeless tobacco non-user [facility] Start: 08-24-2022 Alcohol intake Current non-drinker of alcohol (finding) [facility] Start: 07-18-2022 [facility] Start: 1990 Sex Assigned At Not on file [facility] Progress note 08-24-2022 Note Date & Type Note Facility 08-24-2022 Note HNO ID: [id number] Author: Kelley Hoyt APRN.CNP Service: ? Author [...] have confirmed and edited as necessary, the [facility] Review of Systems Constitutional: Negative for [...] warranting prompt ER evaluation. Kelley Hoyt APRN.CNP [facility] Instructions 08-24-2022 Patient Instructions Note Date [...] in 1 week. documented in this encounter [facility] History of Present illness Narrative 08-24-2022 [...] have confirmed and edited as necessary, the [facility] Review of Systems Constitutional: Negative for [...] Kelley Hoyt APRN.CNP documented in this encounter [facility] Evaluation note Note Date & Type Note Facility documented in this encounter [facility] Summary Purpose Family History No Family [...] DATE CREATED AUTHOR AUTHOR'S ORGANIZ ATION 11/25/2019 [facility] DATE CREATED AUTHOR AUTHOR'S ORGANIZ ATION 10/23/2020 [facility] DATE CREATED AUTHOR AUTHOR'S ORGANIZ ATION 10/28/2020 [facility] DATE CREATED AUTHOR AUTHOR'S ORGANIZ ATION 11/15/2021 [facility] DATE CREATED AUTHOR AUTHOR'S ORGANIZ ATION 08/31/2022 [facility] DATE CREATED AUTHOR AUTHOR'S ORGANIZ ATION 12/24/2022 [facility] Source Comments (unrecognize d section and content) In the event this informatio n is protected by the Federal Confidentiality of Alcohol and Drug Abuse Patient Records regulations: The Federal rules restrict any use of the information to criminally investigate or prosecute any alcohol or drug abuse patient.[facility] Reason for Visit (unrecogniz ed section [...] BE BASED ON THE PRIMARY CLINICAL RECORDS. [facility]. provides no warranty or guarantee of the accuracy or completeness of information in this document.
[2023-04-10 15:55] LABS: Absolute Lymphocyte Count 3.35 X10^3/uL (0.83-4.51); Absolute Neutrophil Count 11.2 X10^3/uL (2.0-7.7); Basophil# 0.01 X10^3/uL; Basophil% 0.1 % (0-1); Eosinophils% 1.3 % (0-5); Hematocrit 26.3 % (37-47); Hemoglobin 8.8 g/dL (12.0-15.0); Lymphocyte # 3.35 X10^3/ul (0.83-4.51); Lymphocyte % 21.4 % (19-41); Mean Corp Hgb Conc 33.5 g/dL (32-36); Mean Corpuscular Hgb 28.9 pg (27.0-32.0); Mean Corpuscular Volume 86.2 fL (81-99); Mean Platelet Vol. 9.7 fl (6.2-12.0); Monocyte# 0.79 X10^3/uL; NRBC Flagged by Analyzer 0 % (0-5); Neutrophil # 11.21 X10^3/uL (2.7-7.7); Neutrophil % 71.4 % (47-70); Platelet Count 298 K/mm3 (150-450); RBC Distribution Width CV 14.5 % (11.6-14.6); RBC Distribution Width SD 44.6 fl (35.1-43.9); Red Blood Count 3.05 M/mm3 (4.2-5.4); White Blood Count 15.7 K/mm3 (4.4-11.0)
== END | disposition home or self-care (01) ==
LOC: LAB 15:12
PROVIDERS: PCP Nurse Practitioner Family; Referring Provider Advanced Practice Midwife; Visit Provider Advanced Practice Midwife
DX: O72.1 Other immediate postpartum hemorrhage (principal); Z3A.00 Weeks of gestation of pregnancy not specified
CPT/HCPCS: 36415; 85025

== ENCOUNTER 2024-06-27 14:12 | Emergency (ER) | payer OTHER, SELFPAY ==
[2024-06-27 14:14] VITALS: BP 147/85; PULSE 120; RESP 16; TEMP 36.2; O2SAT 97; BMI 40.6
--- NOTE | 2024-06-27 15:08 | ED.VIS.FEGU ---
HPI HPI - Female History of Present Illness Chief Complaint: Vag Bleeding PFSH PFSH Medical History Vaginal delivery Infertility Genetic testing Home Medications ?Medication ?Instructions ?Recorded ?Last Taken ?Type docosahexaenoic acid 200 mg 200 mg PO 09/12/22 04/05/23 07:24 History capsule ( DHA) 200 mg metformin 1,000 mg tablet 1,000 mg PO DAILY insulin 09/12/22 04/05/23 07:25 History dependence pre- 1,000 mg norethindrone (contraceptive) 0.35 0.35 mg PO DAILY #84 tabs 05/19/23 Unknown Rx mg tablet Allergy/AdvReac Type Severity Reaction Status Date / Time No Known Allergies Allergy Verified 06/27/24 14:17 Family History Father Thyroid cancer Grandmother Rectal cancer Grandfather Heart disease Surgical History S/P foot surgery, right History of tonsillectomy Social History household members: spouse current occupational status: employed current occupation: [employer] Smoking Status: Never smoker alcohol intake: current alcohol intake frequency: a few times a month substance use type: does not use caffeine: Yes what type of physical activity do you participate in: walking frequency: 3-4 times per week seatbelt use: always do you feel safe at home: Yes additional social history: - Hardik EXAM Physical Exam Const Vital Signs: 06/27/24 14:14 06/27/24 16:00 Temperature 97.2 F L Temperature Source Oral Pulse Rate 120 H Respiratory Rate 16 Blood Pressure 147/85 H 141/95 H Blood Pressure Mean 105 108 Pulse Ox 97 96 Oxygen Delivery Method Room Air MDM MDM MDM Narrative Medical decision making narrative: HISTORY OF PRESENT ILLNESS: Chief complaint: Vaginal bleeding 33-year-old female presents concern for heavy vaginal bleeding. States she was sent in by OB. She has been soaking through super plus tampons every hour for last 3 hours. The patient further state bleeding started today. She does note some lightheadedness. No some crampy abdominal pain. She is unsure if she is . Unknown last period. She says her periods are irregular. Does not take blood thinners. No history of bleeding disorders such as hemophilia. Not concern about STDs. Sexually active 1 partner unprotected. She is a G1, P0. Is not currently undergoing any fertility treatment. No urinary complaints. REVIEW OF SYSTEMS: Pertinent positives: Vaginal bleeding, lightheadedness, abdominal cramping. Pertinent negatives: CP, SOB, vomiting. PHYSICAL EXAM: Nursing triage notes reviewed, Vital signs reviewed Constitutional: please see [facility] HENT: MMM Eyes: Pupils equal round and reactive to light, Extraocular muscles intact Neck: No stridor, no JVD, full neck ROM Lungs: Clear to auscultation, No wheezing or rales. No increased work of breathing, no conversational dyspnea, no accessory muscle use, no nasal flaring. No respiratory distress noted Heart: Regular rate and rhythm, No murmurs, No rubs and No gallops, 2+ distal pulses (radial, femoral, posterior tibial) in all extremities Abdomen: Soft, there is no tenderness, rigidity, rebound or guarding, no obvious peritoneal signs, no palpable pulsatile abdominal masses, no auscultated abdominal bruit : No CVAT, pelvic exam with senior it project manager (Amara GRIDER). No lesions, normal vaginal mucosa Extremities: No edema Neuro: No new focal neurological deficits, cranial nerves II through XII intact, 5/5 strength in all present extremities. Intact sensation to light touch in all present extremities, 2+ reflexes bilateral patella tendons. Skin: No rash or lesions noted MEDICAL DECISION MAKING: Chief Complaint: please see HPI External records reviewed: Reviewed operative report from March 2023. Patient vaginal delivery at that time. Her OB appears to be Dr. West Factors affecting care: none Social determinants of health: none History obtained from others: none Consults: BATTERY INSPECTOR (Dr. West)?recommended an ultrasound and if the ultrasound is reassuring discharge with instructions to take progesterone based oral contraceptives. She recommended taking double the dose daily until heavy bleeding resolves. [facility] Narrative: Patient was initially tachycardic otherwise afebrile nontoxic-appearing. Exam with a benign abdomen. Some bleeding of the vaginal vault approximate 5 to 10 cc. Not heavy vaginal bleeding. I considered the following differential diagnosis: Anemia, uterine abnormality, endometrial abnormality, abnormality ALL IMAGES (IF OBTAINED) HAVE BEEN PERSONALLY REVIEWED AND INTERPRETED BY MYSELF. CBC with no anemia, no thrombocytopenia however there is leukocytosis suggestive of some inflammation BMP without evidence of significant electrolyte abnormalities, no anion gap, no acute kidney injury. hCG quant negative Blood type a positive Pelvic ultrasound showed a thick endometrium likely consistent with the patient's menstrual cycle. Discussed the case with BATTERY INSPECTOR on-call Dr. West who recommended doubling her already prescribed oral progesterone based contraceptive to stem bleeding. Recommended follow-up in the office. The patient and/or family, caregivers express understanding. The patient and/or family, caregivers agrees with the plan. Shared decision making: I will have a discussion with the patient and or visitors regarding risk/benefits of further testing or admission. They will be made aware of of the risk/benefits inherent in this decision they will be given the opportunity to voice understanding. Total critical care time today provided was at least 0 minutes. This excludes separately billable procedures. Critical care time (if documented) is secondary to the patient having high probability of clinically significant/life threatening deterioration in the patient's condition which required my urgent intervention. Impression: 1. Vaginal bleeding 2. Lightheadedness Dispo: Discharge home This note was generated with [employer] dictation software. It may contain incorrect words, spelling, and punctuation that were not noted in review of the chart prior to signing. Lab Data Labs: Laboratory Results - last 24 hr 06/27/24 06/27/24 06/27/24 15:18 15:25 17:00 WBC 13.6 H RBC 5.55 H Hgb 15.5 H Hct 44.9 MCV 80.9 L MCH 27.9 MCHC 34.5 RDW Std Deviation 36.5 RDW Coeff of Manda 12.4 Plt Count 310 MPV 8.6 Immature Gran % (Auto) 0.200 Neut % (Auto) 72.6 H Lymph % (Auto) 22.1 [place] % (Auto) 4.5 Eos % (Auto) 0.4 Baso % (Auto) 0.2 Absolute Neuts (auto) 9.9 H Absolute Lymphs (auto) 3.02 Nucleated RBC % 0 Sodium 138 Potassium 4.0 Chloride 106 Carbon Dioxide 19.0 L Anion Gap 14 BUN 10 Creatinine 0.72 Estim Creat Clear Calc 130.64 Est GFR (MDRD) Non-Af 114 BUN/Creatinine Ratio 13.7 Glucose 98 Calcium 9.5 HCG, Quant < 1 Urine Color Yellow Urine Clarity Sl. Cloudy Urine pH 7.0 Ur Specific [place] 1.005 Urine Protein 30 H Urine Glucose (UA) Normal Urine Ketones Negative Urine Occult Blood 250 H Urine Nitrite Negative Urine Bilirubin Negative Urine Urobilinogen Normal Ur Leukocyte Esterase 100 H Urine RBC 50-100 SEEN Urine WBC 0-5 SEEN Ur Squamous Epith Cells 0 SEEN Urine Bacteria 0 SEEN Urine Mucus 0 SEEN Blood Type A POSITIVE Antibody Screen POSITIVE Antibody Identification ANTI-K Antigen Identification K ANTIGEN - NEGATIVE Radiography Diagnostic Testing: Clinical Impression(s) from Imaging Studies Transvaginal US 06/27/24 16:51 IMPRESSION: 1. No acute abnormality. 2. Prominently thickened endometrium, nonspecific in a premenopausal female. Recommend outpatient follow-up pelvic ultrasound to evaluate stability, ideally in the menstrual/early proliferative phase when endometrial thickness is expected to be at a clinton. 3. Trace pelvic free fluid, potentially physiologic in this demographic. 4. Additional description as above. Reading Location: [id number] Discharge Plan Triage Chief Complaint: Vag Bleeding ED Provider: Mian Anthony Dx/Rx/DC Orders Prescriptions: No Action metformin 1,000 mg tablet 1,000 mg PO DAILY DHA 200 mg capsule 200 mg PO norethindrone (contraceptive) 0.35 mg tablet 0.35 mg PO DAILY Qty: 84 3RF Primary Care Provider: MILO GRIMES Referrals: MILO GRIMES, [facility] [employer] [facility] [Primary Care Provider] - Print Language: Tanzanian
[2024-06-27 15:28] LABS: Absolute Lymphocyte Count 3.02 X10^3/uL (0.83-4.51); Absolute Neutrophil Count 9.9 X10^3/uL (2.0-7.7); Basophil# 0.03 X10^3/uL; Basophil% 0.2 % (0-1); Eosinophil# 0.05 X10^3/uL; Eosinophils% 0.4 % (0-5); Hematocrit 44.9 % (37-47); Hemoglobin 15.5 g/dL (12.0-15.0); Lymphocyte # 3.02 X10^3/ul (0.83-4.51); Lymphocyte % 22.1 % (19-41); Mean Corp Hgb Conc 34.5 g/dL (32-36); Mean Corpuscular Hgb 27.9 pg (27.0-32.0); Mean Corpuscular Volume 80.9 fL (81-99); Mean Platelet Vol. 8.6 fl (6.2-12.0); Monocyte# 0.62 X10^3/uL; Monocyte% 4.5 % (0-10); NRBC Flagged by Analyzer 0 % (0-5); Neutrophil # 9.89 X10^3/uL (2.7-7.7); Neutrophil % 72.6 % (47-70); Platelet Count 310 K/mm3 (150-450); RBC Distribution Width CV 12.4 % (11.6-14.6); RBC Distribution Width SD 36.5 fl (35.1-43.9); Red Blood Count 5.55 M/mm3 (4.2-5.4); White Blood Count 13.6 K/mm3 (4.4-11.0)
[2024-06-27] MEDS: 0.9% Normal Saline (1000mL) 1,000 ML 999 ML IV (15:29)
[2024-06-27] MEDS: Ondansetron 4 MG/2 ML Vial IV (15:49)
[2024-06-27 16:00] VITALS: BP 141/95; O2SAT 96
[2024-06-27 16:15] LABS: Anion Gap 14 (5-15); BUN 10 mg/dL (4-19); BUN/Creat Ratio 13.7 RATIO (10-20); Calcium,Total 9.5 mg/dL (7.6-11.0); Chloride 106 mmol/L (98-108); Creatinine, Serum 0.72 mg/dL (0.70-1.20); EST Glomerular Filtration Rate 114 (>60); Estimated Creatinine Clearance 130.64 ml/min (50-250); Glucose 98 mg/dL (70-99); Sodium Level 138 mmol/L (133-145)
[2024-06-27 16:20] LABS: hCG Titer Quant., Serum < 1 mIU/mL (<9 non-preg)
--- NOTE | 2024-06-27 16:51 | US_ITS ---
PROCEDURE: TRANSVAGINAL NON- (USTVAG), 06/27/2024 REASON FOR EXAM: VAGINAL BLEEDING TECHNIQUE: Grayscale and color/spectral doppler transvaginal pelvic ultrasound was performed. COMPARISON: None FINDINGS: Uterus: 7.8 x 5.6 x 4.6 cm, Retroverted. Unremarkable echotexture. Endometrium: 21 mm, echogenic secretory appearance. Punctate echogenic focus measuring roughly 1 mm noted, possible calcification, doubtful clinical significance. Cervix: Minute nabothian cyst. Right ovary: 3.72.6 x 2.5 cm (estimated volume 12.4 mL), unremarkable. Normal low resistance arterial waveforms. Left ovary: 3.9 x 2.5 x 2.5 cm (estimated volume 12.6 mL), unremarkable. Normal low resistance arterial waveforms. Free fluid: Trace. US/Transvaginal Non- IMPRESSION: 1. No acute abnormality. 2. Prominently thickened endometrium, nonspecific in a premenopausal female. R ecommend outpatient follow-up pelvic ultrasound to evaluate stability, ideally in the menstrual/early proliferative phase when end ometrial thickness is expected to be at a clinton. 3. Trace pelvic free fluid, potentially physiologic in this demographic. 4. Additional description as above. Reading Location: [facility]
[2024-06-27 17:06] LABS: Bacteria 0 SEEN /hpf (None Seen); Mucous, Urine 0 SEEN /hpf (<or=2+); Squamous Epithelial Cells - UA 0 SEEN /hpf (5-10)
[2024-06-27 17:09] LABS: Color, Urine Yellow (Yellow); Glucose, Dipstick Normal (Normal); Ketone-Dipstick Negative (Negative); Leukocyte Esterase-Dipstick 100 /ul (Negative); Nitrite-Dipstick Negative (Negative); Occult Blood-Urine 250 /ul (Negative); Protein-Dipstick 30 mg/dl (Negative); Specific Gravity, Urine 1.005 (1.002-1.030); Urine Bilirubin Dipstick Negative (Negative); Urine Clarity Sl. Cloudy (Clear); Urine Urobilinogen Normal (Normal)
[2024-06-27 17:17] LABS: Red Blood Cells-Urine 50-100 SEEN /hpf (0-5); White Blood Cells 0-5 SEEN /hpf (0-5)
[2024-06-27 18:00] VITALS: BP 118/70; O2SAT 97
== END 2024-06-27 18:48 | disposition home or self-care (01) ==
PROVIDERS: Emergency Provider Emergency Medicine; PCP Nurse Practitioner Family; Visit Provider Emergency Medicine
DX: N93.9 Abnormal uterine and vaginal bleeding, unspecified (principal); R42 Dizziness and giddiness
CPT/HCPCS: 76830; 80048; 81001; 84702; 85025; 86850; 86870; 86900; 86901; 86905; 96361; 96374; 96376; 99282; A4216; J2405

== ENCOUNTER → 2024-07-14 | Outpatient (CLI) | payer OTHER, SELFPAY ==
[2024-07-14 13:12] LABS: Thyroid Stim Hormone (TSH) 0.937 uIU/mL (0.300-4.200)
[2024-07-15 04:07] LABS: Thyroid Peroxidase AB 12 IU/mL (0-34)
== END | disposition home or self-care (01) ==
PROVIDERS: PCP Nurse Practitioner Family; Referring Provider Nurse Practitioner Women's Health; Visit Provider Nurse Practitioner Women's Health
DX: Z13.29 Encounter for screening for other suspected endocrine disorder (principal); N93.9 Abnormal uterine and vaginal bleeding, unspecified
CPT/HCPCS: 36415; 83036; 84439; 84443; 86376